=== PATIENT | male | born 1980 | race African-American/Black ===

== ENCOUNTER 2017-01-12 05:53 | Emergency (ER) | payer OTHER ==
[~2017-01-12] VITALS: Ht 177.8 cm; Wt 68.0 kg
[2017-01-12 06:34] VITALS: BP 120/86
== END 2017-01-12 07:31 | disposition home or self-care (01) ==
LOC: ER 06:02
DX: S46.911A Strain of unspecified muscle, fascia and tendon at shoulder and upper arm level, right arm, initial encounter (principal); X50.0XXA Overexertion from strenuous movement or load, initial encounter; X50.9XXA Other and unspecified overexertion or strenuous movements or postures, initial encounter; Y93.89 Activity, other specified; Y99.8 Other external cause status; Y92.89 Other specified places as the place of occurrence of the external cause

== ENCOUNTER 2021-02-02 12:21 | Emergency (ER) | payer OTHER ==
[~2021-02-02] VITALS: Ht 175.3 cm; Wt 70.3 kg
[2021-02-02] MEDS ORDERED: LORazepam 2MG/ML-1ML VIAL IV ONE (12:45)
[2021-02-02] MEDS ORDERED: SODIUM CHLORIDE 0.9% 1,000 ML IV ONE ×2 (12:45)
[2021-02-02 13:45] LABS: Basophils # (auto) 0 10 ^3/uL (0-0.2); Basophils % (auto) 0.4 % (0.0-2.0); Calcium 9.6 mg/dL (8.5-10.1); Eosinophils # (auto) 0.1 10 ^3/uL (0-0.8); Eosinophils % (auto) 0.9 % (0.0-7.0); Hematocrit 46.2 % (41.0-53.0); Hemoglobin 15.9 g/dL (13.5-17.5); Lymphocytes # (auto) 1.1 10 ^3/uL (0.4-5.4); Lymphocytes % (auto) 10.2 % (10.0-50.0); Mean Corpuscular Hemoglobin 31.5 pg (28.0-32.0); Mean Corpuscular Hgb Conc. 34.4 g/dL (32.0-36.0); Mean Corpuscular Volume 91.5 fL (80.0-100.0); Monocytes # (auto) 0.6 10 ^3/uL (0-1.3); Monocytes % (auto) 5.5 % (0.0-12.0); Neutrophils # (auto) 8.8 10 ^3/uL (1.6-8.6); Nucleated Red Blood Cells % 0.1 %; Platelet Count (auto) 361 10^3/uL (140-450); Red Blood Cells 5.05 10^6/uL (4.5-5.90); Red Cell Distribution Width 12.3 % (11.8-14.3); White Blood Cell 10.6 10^3/uL (4.4-10.8)
[2021-02-02 13:46] LABS: Alcohol, Urine < 3.0 mg/dL (0-10); Amphetamine Screen, Urine POSITIVE (NEGATIVE); Barbiturate Scree,Urine NEGATIVE (NEGATIVE); Benzodiazephine Screen, Urine NEGATIVE (NEGATIVE); Cannabinoid Screen, Urine NEGATIVE (NEGATIVE); Cocaine Screen, Urine POSITIVE (NEGATIVE); Opiate Scree,Urine NEGATIVE (NEGATIVE); Phencyclidine Screen, Urine NEGATIVE (NEGATIVE)
[2021-02-02 13:51] LABS: Albumin 4.6 g/dL (3.4-5.0); BUN/Creatinine Ratio 6.9; Bilirubin, Total 0.7 mg/dL (0.2-1.0); Total Protein 8.8 g/dL (6.4-8.2)
[2021-02-02 14:05] LABS: Urine Bacteria NONE SEEN /hpf (None Seen); Urine Blood Negative /uL (Negative); Urine Mucus FEW (None Seen); Urine Specific Gravity 1.028 (1.001-1.035); Urine WBC 1 /hpf (0 - 3)
[2021-02-02 15:45] VITALS: BP 144/79
== END 2021-02-02 16:18 | disposition home or self-care (01) ==
LOC: ER 12:21
DX: F41.9 Anxiety disorder, unspecified (principal); F12.10 Cannabis abuse, uncomplicated; F15.10 Other stimulant abuse, uncomplicated
CPT/HCPCS: 36415; 80053; 80307; 81001; 85025; 96361; 96374; 99285; J2060; J7030

== ENCOUNTER 2021-07-21 17:30 | Emergency (ER) | payer SELFPAY ==
[~2021-07-21] VITALS: Ht 177.8 cm; Wt 72.6 kg
[2021-07-21] MEDS ORDERED: SODIUM CHLORIDE 0.9% 1,000 ML IVB ONE (17:45)
[2021-07-21 18:33] LABS: Basophils # (auto) 0 10 ^3/uL (0-0.2); Basophils % (auto) 0.4 % (0.0-2.0); Eosinophils # (auto) 0.3 10 ^3/uL (0-0.8); Eosinophils % (auto) 2.4 % (0.0-7.0); Hematocrit 38.4 % (41.0-53.0); Hemoglobin 12.7 g/dL (13.5-17.5); Lymphocytes # (auto) 1.7 10 ^3/uL (0.4-5.4); Lymphocytes % (auto) 15.8 % (10.0-50.0); Mean Corpuscular Hemoglobin 29.9 pg (28.0-32.0); Mean Corpuscular Volume 90.6 fL (80.0-100.0); Monocytes # (auto) 0.6 10 ^3/uL (0-1.3); Monocytes % (auto) 5.4 % (0.0-12.0); Nucleated Red Blood Cells % 0.1 %; Red Blood Cells 4.24 10^6/uL (4.5-5.90); Red Cell Distribution Width 13.3 % (11.8-14.3); White Blood Cell 10.5 10^3/uL (4.4-10.8)
[2021-07-21 19:01] LABS: Albumin 3.8 g/dL (3.4-5.0); BUN/Creatinine Ratio 10.4; Calcium 8.8 mg/dL (8.5-10.1); Potassium 3.8 mmol/L (3.5-5.1)
[2021-07-21 19:04] LABS: Bilirubin, Total 0.2 mg/dL (0.2-1.0); Total Protein 7.3 g/dL (6.4-8.2)
[2021-07-21] MEDS ORDERED: ONDANSETRON HCL 4 MG/2 ML VIAL IV ONE (19:15)
[2021-07-21 19:20] VITALS: BP 115/74
== END 2021-07-21 19:32 | disposition home or self-care (01) ==
LOC: ER 17:30 → EDBD 17:30 → ER 19:32
DX: T50.901A Poisoning by unspecified drugs, medicaments and biological substances, accidental (unintentional), initial encounter (principal); F15.10 Other stimulant abuse, uncomplicated; F17.210 Nicotine dependence, cigarettes, uncomplicated; J45.909 Unspecified asthma, uncomplicated; Y92.89 Other specified places as the place of occurrence of the external cause
CPT/HCPCS: 36415; 80053; 80320; 85025; 96361; 96374; 99284; J2405; J7030; 93005

== ENCOUNTER 2023-06-21 19:33 | Emergency (ER) | payer OTHER ==
[~2023-06-21] VITALS: Ht 177.8 cm; Wt 155.0 kg
[2023-06-21] MEDS ORDERED: PSEU120T2 PO (22:30)
[2023-06-21] MEDS ORDERED: PRED20TA2 PO (22:30)
[2023-06-21] MEDS ORDERED: CLIN300C70 PO (22:30)
[2023-06-22 02:00] VITALS: BP 129/67; PULSE 76; RESP 18; TEMP 98; O2SAT 96
[2023-06-22] MEDS ORDERED: DexAMETHasone SOD PHOS 10MG/1ML VIAL INJ IM ONE (02:00)
== END 2023-06-22 02:00 | disposition home or self-care (01) ==
LOC: ER 19:34
DX: J01.90 Acute sinusitis, unspecified (principal); F17.210 Nicotine dependence, cigarettes, uncomplicated; J45.909 Unspecified asthma, uncomplicated
CPT/HCPCS: 96372; 99283; J1100

== ENCOUNTER 2023-08-25 07:39 | Emergency (ER) | payer MEDICAID, OTHER ==
[~2023-08-25] VITALS: Ht 177.8 cm; Wt 64.8 kg
[~2023-08-25 07:39] MED LIST: CLIN300C70 PO; PRED20TA2 PO; PSEU120T2 PO
[2023-08-25] MEDS ORDERED: LORazepam 2MG/ML-1ML VIAL IM ONE ×2 (08:30→10:00)
[2023-08-25 09:43] LABS: Amphetamine Screen, Urine Neg (NEGATIVE); Barbiturate Scree,Urine Neg (NEGATIVE); Benzodiazephine Screen, Urine Neg (NEGATIVE); Cannabinoid Screen, Urine Neg (NEGATIVE); Cocaine Screen, Urine Neg (NEGATIVE); Opiate Scree,Urine Neg (NEGATIVE); Phencyclidine Screen, Urine Neg (NEGATIVE)
[2023-08-25 09:45] LABS: Basophils # (auto) 0 10 ^3/uL (0-0.2); Basophils % (auto) 0.2 % (0.0-2.0); Eosinophils # (auto) 0 10 ^3/uL (0-0.8); Eosinophils % (auto) 0.2 % (0.0-7.0); Hemoglobin 14.5 g/dL (13.5-17.5); Lymphocytes # (auto) 1.2 10 ^3/uL (0.4-5.4); Mean Corpuscular Hgb Conc. 32.9 g/dL (32.0-36.0); Mean Corpuscular Volume 88.3 fL (80.0-100.0); Monocytes # (auto) 0.7 10 ^3/uL (0-1.3); Monocytes % (auto) 4.6 % (0.0-12.0); Neutrophils # (auto) 12.5 10 ^3/uL (1.6-8.6); Red Blood Cells 4.99 10^6/uL (4.5-5.90); Red Cell Distribution Width 14.2 % (11.8-14.3); White Blood Cell 14.4 10^3/uL (4.4-10.8)
[2023-08-25 09:47] LABS: Urine Bacteria NONE SEEN /hpf (None Seen); Urine Blood Negative /uL (Negative); Urine Clarity HAZY (Clear); Urine Color Yellow (Yellow); Urine Hyaline Cast FEW /lpf (0 - 2); Urine Mucus FEW (None Seen); Urine Protein, UAD 1+ (Negative); Urine Specific Gravity 1.033 (1.001-1.035); Urine Urobilinogen Normal (Negative); Urine WBC 3 /hpf (0 - 3); Urine pH 5.5 (5.0-8.0)
[2023-08-25 09:52] LABS: Alanine Aminotransferase 32 U/L (7-40); Alkaline Phosphatase 99 U/L (46-116); Anion Gap 17 (5-15); Calcium 10.1 mg/dL (8.5-10.1); Carbon Dioxide 15 mmol/L (20-30); Chloride 110 mmol/L (98-107); Potassium 4.1 mmol/L (3.5-5.1); Sodium 142 mmol/L (136-145)
[2023-08-25 09:53] LABS: Aspartate Aminotransferase 22 U/L (13-40); BUN/Creatinine Ratio 16.7 (10.0-20.0); Bilirubin, Total 0.8 mg/dL (0.2-1.0); Blood Urea Nitrogen 22 mg/dL (9-23); Total Protein 7.9 g/dL (5.7-8.2)
[2023-08-25] MEDS ORDERED: HALOPERIDOL LACTATE 5 MG/ML INJ VIAL IM ONE (10:00)
[2023-08-25 10:06] LABS: Glucose 164 mg/dL (74-106)
[2023-08-26 14:00] VITALS: BP 121/91; PULSE 121; RESP 18; TEMP 97.6; O2SAT 96
== END 2023-08-26 15:45 | disposition home or self-care (01) ==
LOC: ER 07:39
DX: F25.9 Schizoaffective disorder, unspecified (principal); J45.909 Unspecified asthma, uncomplicated; F17.210 Nicotine dependence, cigarettes, uncomplicated
CPT/HCPCS: 36415; 80053; 80307; 80320; 81001; 85025; 96372; 99285; J1630; J2060

== ENCOUNTER 2023-09-08 17:40 | Inpatient (IN) | payer MEDICAID ==
[~2023-09-08] VITALS: Ht 180.3 cm; Wt 68.9 kg
[2023-09-08] VITALS (8 sets, daily range): BP systolic 105–177; BP diastolic 74–97; PULSE 115–130; RESP 27–45; TEMP 99.5–99.9; O2SAT 82–95
[2023-09-08] MEDS ORDERED: SUCCINYLCHOLINE CHLORIDE 20 MG/ML 10ML VIAL IV ONE (17:44)
[2023-09-08] MEDS ORDERED: SODIUM CHLORIDE 0.9% 1,000 ML IV ONE (18:15)
[2023-09-08] MEDS ORDERED: SODIUM CHLORIDE 0.9% 500 ML IVB ONE (18:15)
[2023-09-08] MEDS ORDERED: MIDAZOLAM DRIP 50 mg/50mL 50 ML IV ONE (18:25)
[2023-09-08] MEDS: MIDAZOLAM DRIP 50 mg/50mL 50 ML IV SCH ×2 (18:28→20:57)
[2023-09-08 18:53] LABS: Basophils # (auto) 0.1 10 ^3/uL (0-0.2); Nucleated Red Blood Cells % 0.3 %
[2023-09-08 18:54] LABS: Basophils % (auto) 0.4 % (0.0-2.0); Eosinophils # (auto) 0.3 10 ^3/uL (0-0.8); Lymphocytes # (auto) 5.6 10 ^3/uL (0.4-5.4); Monocytes # (auto) 0.8 10 ^3/uL (0-1.3); Neutrophils # (auto) 8.8 10 ^3/uL (1.6-8.6)
[2023-09-08 19:00] LABS: Amphetamine Screen, Urine Neg (NEGATIVE); Barbiturate Scree,Urine Neg (NEGATIVE); Benzodiazephine Screen, Urine Pos (NEGATIVE); Cannabinoid Screen, Urine Neg (NEGATIVE); Cocaine Screen, Urine Neg (NEGATIVE); Opiate Scree,Urine Neg (NEGATIVE); Phencyclidine Screen, Urine Neg (NEGATIVE)
[2023-09-08 19:01] LABS: Hematocrit 32.9 % (41.0-53.0); Hemoglobin 10.7 g/dL (13.5-17.5); Lymphocytes % (auto) 36.2 % (10.0-50.0); Mean Corpuscular Hemoglobin 30.1 pg (28.0-32.0); Mean Corpuscular Hgb Conc. 32.7 g/dL (32.0-36.0); Mean Corpuscular Volume 92.2 fL (80.0-100.0); Neutrophils % (auto) 56.4 % (37.0-80.0); Red Blood Cells 3.56 10^6/uL (4.5-5.90); Red Cell Distribution Width 14.7 % (11.8-14.3); White Blood Cell 15.5 10^3/uL (4.4-10.8)
[2023-09-08 19:04] LABS: Urine Bacteria FEW /hpf (None Seen); Urine Blood Negative /uL (Negative); Urine Clarity HAZY (Clear); Urine Color Yellow (Yellow); Urine Protein, UAD TRACE (Negative); Urine Specific Gravity 1.019 (1.001-1.035); Urine Sperm PRESENT /hpf (None Seen); Urine Urobilinogen Normal (Negative); Urine WBC 25 /hpf (0 - 3); Urine pH 5.5 (5.0-8.0)
[2023-09-08 19:10] LABS: Lactic Acid w/Reflex 5.1 mmol/L (0.4-2.0)
[2023-09-08 19:11] LABS: Alanine Aminotransferase 195 U/L (7-40); Alkaline Phosphatase 143 U/L (46-116); Anion Gap 10 (5-15); Aspartate Aminotransferase 115 U/L (13-40); BUN/Creatinine Ratio 7.2 (10.0-20.0); Bilirubin, Total < 0.2 mg/dL (0.2-1.0); Blood Urea Nitrogen 8 mg/dL (9-23); Carbon Dioxide 23 mmol/L (20-30); Chloride 110 mmol/L (98-107); Glucose 310 mg/dL (74-106); Magnesium 1.6 mg/dL (1.6-2.6); Potassium 3.7 mmol/L (3.5-5.1); Sodium 143 mmol/L (136-145); Total Protein 4.8 g/dL (5.7-8.2)
[2023-09-08] MEDS ORDERED: LORazepam 2MG/ML-1ML VIAL ONE (19:55)
[2023-09-08 19:59] LABS: Base Excess -6.1 mmol/L (-2.0-2.0)
[2023-09-08] MEDS: PROPOFOL 100 ML IV SCH ×2 (20:00→22:52)
[2023-09-08] MEDS ORDERED: LORazepam 2MG/ML-1ML VIAL IV ONE (20:00)
[2023-09-08] MEDS ORDERED: PROPOFOL 100 ML IV ONE (20:00)
[2023-09-08] MEDS ORDERED: NITROGLYCERIN 0.4 MG SL TAB SL PRN (21:45)
[2023-09-08] MEDS ORDERED: ALBUTEROL SULF 2.5 MG/0.5ML(0.5%) NEB SOLN NEB PRN (21:45)
[2023-09-08] MEDS ORDERED: cefTRIAXone 1GM/50ML D5W 50 ML IV ONE (21:45)
[2023-09-08] MEDS ORDERED: MORPHINE SULFATE INJ 2 MG/ml SYRG IV PRN (21:45)
[2023-09-08] MEDS ORDERED: ONDANSETRON HCL 4 MG/2 ML VIAL IV PRN (21:45)
[2023-09-08] MEDS: SODIUM CHLORIDE 0.9% 1,000 ML IV SCH (22:21)
[2023-09-08 22:31] LABS: Base Excess -3.9 mmol/L (-2.0-2.0)
[2023-09-08] MEDS: fentaNYL Drip 2500mCg/250mlNS 250 ML IV SCH (23:00)
[2023-09-09] VITALS (102 sets, daily range): BP systolic 76–132; BP diastolic 36–75; PULSE 87–117; RESP 7–32; TEMP 98.2–99.9; O2SAT 90–100
[2023-09-09] MEDS ORDERED: BUPR8MIS BC (01:23)
[2023-09-09] MEDS ORDERED: NALO4SPR2 (01:25)
[2023-09-09] MEDS ORDERED: DOCU-94 PO (01:25)
[2023-09-09] MEDS: CLINDAMYCIN 600MG IV 50 ML IV SCH ×2 (01:32→06:44)
[2023-09-09] MEDS: PROPOFOL 100 ML IV SCH ×6 (02:01→21:52)
[2023-09-09 03:47] LABS: Base Excess -4.1 mmol/L (-2.0-2.0)
[2023-09-09] MEDS: MIDAZOLAM DRIP 50 mg/50mL 50 ML IV SCH ×6 (03:56→18:05)
[2023-09-09 05:35] LABS: Basophils # (auto) 0 10 ^3/uL (0-0.2); Basophils % (auto) 0.3 % (0.0-2.0); Eosinophils # (auto) 0 10 ^3/uL (0-0.8); Eosinophils % (auto) 0.3 % (0.0-7.0); Hematocrit 41.9 % (41.0-53.0); Hemoglobin 13.5 g/dL (13.5-17.5); Lymphocytes # (auto) 1.3 10 ^3/uL (0.4-5.4); Lymphocytes % (auto) 8.8 % (10.0-50.0); Mean Corpuscular Hemoglobin 29.1 pg (28.0-32.0); Mean Corpuscular Hgb Conc. 32.3 g/dL (32.0-36.0); Monocytes # (auto) 1.1 10 ^3/uL (0-1.3); Monocytes % (auto) 7.5 % (0.0-12.0); Neutrophils # (auto) 12.1 10 ^3/uL (1.6-8.6); Neutrophils % (auto) 83.1 % (37.0-80.0); Nucleated Red Blood Cells % 0.3 %; Red Blood Cells 4.65 10^6/uL (4.5-5.90); Red Cell Distribution Width 14.6 % (11.8-14.3); White Blood Cell 14.6 10^3/uL (4.4-10.8)
[2023-09-09] MEDS: SODIUM CHLORIDE 0.9% 1,000 ML IV SCH (06:42)
[2023-09-09 06:55] LABS: Large Platelets FEW; Platelet Estimate Adequate
[2023-09-09] MEDS: PHENYLEPHRINE IV 250 ML IV SCH ×3 (07:25→13:29)
[2023-09-09] MEDS ORDERED: cefTRIAXone 1GM/50ML D5W 50 ML IV SCH (09:00)
[2023-09-09] MEDS ORDERED: NOREPINEPHRINE BITARTRATE 16 MG in SODIUM CHL 0.9% 234 ML IV SCH (11:00)
[2023-09-09] MEDS ORDERED: VANCOMYCIN PER PHARMACY 0 MG IV SCH (11:45)
[2023-09-09] MEDS ORDERED: PANTOPRAZOLE 40 MG/10 ML VIAL INJ IV ONE (11:45)
[2023-09-09] MEDS ORDERED: CEFEPIME 2GM/50ML NS 50 ML IV ONE (11:45)
[2023-09-09] MEDS ORDERED: VANCOMYCIN 1GM/250ML 250 ML IV ONE (13:00)
[2023-09-09] MEDS: fentaNYL Drip 2500mCg/250mlNS 250 ML IV SCH ×2 (13:02→19:55)
[2023-09-09] MEDS ORDERED: MAGNESIUM SULFATE 1GM/100ML 100 ML IV ONE (14:00)
[2023-09-09] MEDS: VASOPRESSIN 20 UNITS in SODIUM CHL 0.9% 99 ML IV SCH (14:00)
[2023-09-09] MEDS: PHENYLEPHRINE INJ 80 MG in SODIUM CHL 0.9% 242 ML IV SCH (14:00)
[2023-09-09] MEDS: NOREPINEPHRINE BITARTRATE 32 MG in SODIUM CHL 0.9% 218 ML IV SCH (14:00)
[2023-09-09 14:23] LABS: INR 1.13 (0.9-1.15); Partial Thromboplastin Time 29.8 SEC (24.5-34.5); Prothrombin Time 11.8 sec (9.3-11.8)
[2023-09-09 14:53] LABS: Alanine Aminotransferase 184 U/L (7-40); Albumin 3.1 g/dL (3.2-4.8); Alkaline Phosphatase 110 U/L (46-116); Anion Gap 3 (5-15); Aspartate Aminotransferase 83 U/L (13-40); BUN/Creatinine Ratio 10.5 (10.0-20.0); Bilirubin, Total 0.3 mg/dL (0.2-1.0); Blood Urea Nitrogen 11 mg/dL (9-23); Calcium 7.7 mg/dL (8.5-10.1); Carbon Dioxide 28 mmol/L (20-30); Chloride 106 mmol/L (98-107); Sodium 137 mmol/L (136-145); Total Protein 5.2 g/dL (5.7-8.2)
[2023-09-09 15:08] LABS: Glucose 143 mg/dL (74-106)
[2023-09-09 15:12] LABS: Potassium 5.8 mmol/L (3.5-5.1)
[2023-09-09] MEDS ORDERED: EPINEPHrine HCL 1 MG/10 ML SYRG IV ONE (15:16)
[2023-09-09] MEDS ORDERED: SODIUM BICARBONATE 8.4% INJ 50ML SYRINGE IV ONE (15:16)
[2023-09-09] MEDS ORDERED: InsuLIN REG 1unit/0.01ml Soln (100units/ml) IV ONE (15:30)
[2023-09-09] MEDS ORDERED: DEXTROSE (50%) 50ML SYRG IV ONE (15:30)
[2023-09-09] MEDS: SODIUM ZIRCONIUM CYCL 10 GM PAK GT SCH ×2 (16:35→21:53)
[2023-09-09] MEDS: VANCOMYCIN 1GM/250ML 250 ML IV SCH (20:59)
[2023-09-09] MEDS: CEFEPIME 2GM/50ML NS 50 ML IV SCH (21:53)
[2023-09-10] VITALS (108 sets, daily range): BP systolic 86–128; BP diastolic 40–73; PULSE 81–94; RESP 23–24; TEMP 67.5–99.7; O2SAT 96–100
[2023-09-10] MEDS: MIDAZOLAM DRIP 50 mg/50mL 50 ML IV SCH ×6 (00:09→21:26)
[2023-09-10] MEDS: NOREPINEPHRINE BITARTRATE 32 MG in SODIUM CHL 0.9% 218 ML IV SCH (00:48)
[2023-09-10] MEDS: VASOPRESSIN 20 UNITS in SODIUM CHL 0.9% 99 ML IV SCH ×3 (01:07→23:21)
[2023-09-10] MEDS: fentaNYL Drip 2500mCg/250mlNS 250 ML IV SCH ×4 (02:31→22:20)
[2023-09-10] MEDS: PROPOFOL 100 ML IV SCH ×6 (03:31→22:17)
[2023-09-10 04:07] LABS: Basophils # (auto) 0 10 ^3/uL (0-0.2); Basophils % (auto) 0.4 % (0.0-2.0); Eosinophils # (auto) 0.3 10 ^3/uL (0-0.8); Eosinophils % (auto) 3.1 % (0.0-7.0); Hematocrit 34.6 % (41.0-53.0); Hemoglobin 11.4 g/dL (13.5-17.5); Lymphocytes # (auto) 0.7 10 ^3/uL (0.4-5.4); Mean Corpuscular Hemoglobin 29.8 pg (28.0-32.0); Mean Corpuscular Volume 90.3 fL (80.0-100.0); Monocytes # (auto) 0.4 10 ^3/uL (0-1.3); Monocytes % (auto) 3.8 % (0.0-12.0); Neutrophils # (auto) 7.7 10 ^3/uL (1.6-8.6); Neutrophils % (auto) 84.7 % (37.0-80.0); Red Blood Cells 3.83 10^6/uL (4.5-5.90); Red Cell Distribution Width 14.7 % (11.8-14.3); White Blood Cell 9.1 10^3/uL (4.4-10.8)
[2023-09-10 04:26] LABS: Alanine Aminotransferase 142 U/L (7-40); Albumin 2.9 g/dL (3.2-4.8); Alkaline Phosphatase 111 U/L (46-116); Anion Gap 8 (5-15); Aspartate Aminotransferase 62 U/L (13-40); BUN/Creatinine Ratio 8.7 (10.0-20.0); Bilirubin, Total 0.5 mg/dL (0.2-1.0); Blood Urea Nitrogen 10 mg/dL (9-23); Calcium 8.2 mg/dL (8.7-10.4); Carbon Dioxide 25 mmol/L (20-30); Chloride 110 mmol/L (98-107); Glucose 119 mg/dL (74-106); Potassium 4.6 mmol/L (3.5-5.1); Sodium 143 mmol/L (136-145); Total Protein 4.9 g/dL (5.7-8.2)
[2023-09-10] MEDS: VANCOMYCIN 1GM/250ML 250 ML IV SCH ×3 (04:40→21:29)
[2023-09-10] MEDS: SODIUM ZIRCONIUM CYCL 10 GM PAK GT SCH (05:31)
[2023-09-10] MEDS: CEFEPIME 2GM/50ML NS 50 ML IV SCH ×3 (05:31→22:17)
[2023-09-10] MEDS: PHENYLEPHRINE INJ 80 MG in SODIUM CHL 0.9% 242 ML IV SCH (07:29)
[2023-09-10 08:28] LABS: Base Excess -1.5 mmol/L (-2.0-2.0)
[2023-09-10] MEDS: ENOXAPARIN SOD 40 MG/0.4 ML SYRINGE SC SCH (08:41)
[2023-09-10] MEDS: PANTOPRAZOLE 40 MG/10 ML VIAL INJ IV SCH (08:41)
[2023-09-10] MEDS ORDERED: FUROSEMIDE 20 MG/2 ML VIAL IV ONE ×2 (12:30→15:15)
[2023-09-10] MEDS ORDERED: Jevity 1.2 Cal/Fiber 1 Liter GT SCH (15:15)
[2023-09-11] VITALS (107 sets, daily range): BP systolic 87–135; BP diastolic 47–76; PULSE 68–81; RESP 14–24; TEMP 96.4–99.3; O2SAT 89–100
[2023-09-11] MEDS: PROPOFOL 100 ML IV SCH ×7 (02:23→23:43)
[2023-09-11 04:01] LABS: Basophils # (auto) 0 10 ^3/uL (0-0.2); Basophils % (auto) 0.6 % (0.0-2.0); Eosinophils # (auto) 0.4 10 ^3/uL (0-0.8); Eosinophils % (auto) 5.3 % (0.0-7.0); Hematocrit 28.2 % (41.0-53.0); Hemoglobin 10.2 g/dL (13.5-17.5); Lymphocytes # (auto) 0.8 10 ^3/uL (0.4-5.4); Lymphocytes % (auto) 9.9 % (10.0-50.0); Mean Corpuscular Hemoglobin 31.6 pg (28.0-32.0); Mean Corpuscular Hgb Conc. 36.1 g/dL (32.0-36.0); Mean Corpuscular Volume 87.7 fL (80.0-100.0); Monocytes # (auto) 0.3 10 ^3/uL (0-1.3); Monocytes % (auto) 3.4 % (0.0-12.0); Neutrophils # (auto) 6.7 10 ^3/uL (1.6-8.6); Neutrophils % (auto) 80.8 % (37.0-80.0); Red Blood Cells 3.21 10^6/uL (4.5-5.90); Red Cell Distribution Width 14.6 % (11.8-14.3); White Blood Cell 8.2 10^3/uL (4.4-10.8)
[2023-09-11 04:29] LABS: Bilirubin, Total 0.6 mg/dL (0.2-1.0); Total Protein 4.7 g/dL (5.7-8.2)
[2023-09-11 04:30] LABS: Carbon Dioxide 26 mmol/L (20-30)
[2023-09-11 04:32] LABS: Albumin 2.9 g/dL (3.2-4.8); Alkaline Phosphatase 105 U/L (46-116); Anion Gap 7 (5-15); Aspartate Aminotransferase 95 U/L (13-40); BUN/Creatinine Ratio 11.8 (10.0-20.0); Blood Urea Nitrogen 14 mg/dL (9-23); Chloride 107 mmol/L (98-107); Glucose 101 mg/dL (74-106); Potassium 3.5 mmol/L (3.5-5.1); Sodium 140 mmol/L (136-145)
[2023-09-11] MEDS: VANCOMYCIN 1GM/250ML 250 ML IV SCH (05:10)
[2023-09-11 05:13] LABS: Magnesium 1.7 mg/dL (1.6-2.6)
[2023-09-11 05:18] LABS: Alanine Aminotransferase 94 U/L (7-40)
[2023-09-11] MEDS: NOREPINEPHRINE BITARTRATE 32 MG in SODIUM CHL 0.9% 218 ML IV SCH (05:44)
[2023-09-11] MEDS: MIDAZOLAM DRIP 50 mg/50mL 50 ML IV SCH ×3 (05:45→11:59)
[2023-09-11] MEDS: fentaNYL Drip 2500mCg/250mlNS 250 ML IV SCH ×3 (05:51→21:50)
[2023-09-11] MEDS: CEFEPIME 2GM/50ML NS 50 ML IV SCH (06:02)
[2023-09-11] MEDS: VASOPRESSIN 20 UNITS in SODIUM CHL 0.9% 99 ML IV SCH ×2 (06:59→09:46)
[2023-09-11] MEDS: PHENYLEPHRINE INJ 80 MG in SODIUM CHL 0.9% 242 ML IV SCH (06:59)
[2023-09-11 07:49] LABS: Base Excess 1.4 mmol/L (-2.0-2.0)
[2023-09-11] MEDS: PANTOPRAZOLE 40 MG/10 ML VIAL INJ IV SCH (07:55)
[2023-09-11] MEDS: ENOXAPARIN SOD 40 MG/0.4 ML SYRINGE SC SCH (07:55)
[2023-09-11] MEDS ORDERED: SODIUM CHLORIDE 0.9% 2,550 ML IV ONE (08:45)
[2023-09-11] MEDS: SODIUM CHLORIDE 0.9% 1,000 ML IV SCH ×2 (08:45→20:00)
[2023-09-11] MEDS: AMPICILLIN & SULBACTAM SODIUM 3 GM in SODIUM CHL 0.9% 100 ML IV SCH ×3 (10:43→21:24)
[2023-09-11] MEDS ORDERED: ALBUTEROL MEDNEB 2.5 mg/3ml NEB NEB PRN (18:00)
[2023-09-12] VITALS (105 sets, daily range): BP systolic 94–153; BP diastolic 46–88; PULSE 62–90; RESP 21–26; TEMP 96.6–99.7; O2SAT 90–100
[2023-09-12] MEDS: AMPICILLIN & SULBACTAM SODIUM 3 GM in SODIUM CHL 0.9% 100 ML IV SCH ×4 (03:46→21:14)
[2023-09-12 04:14] LABS: Basophils # (auto) 0 10 ^3/uL (0-0.2); Basophils % (auto) 0.5 % (0.0-2.0); Eosinophils # (auto) 0.3 10 ^3/uL (0-0.8); Eosinophils % (auto) 4.6 % (0.0-7.0); Hematocrit 27.9 % (41.0-53.0); Hemoglobin 10.2 g/dL (13.5-17.5); Lymphocytes # (auto) 0.6 10 ^3/uL (0.4-5.4); Lymphocytes % (auto) 7.9 % (10.0-50.0); Mean Corpuscular Hemoglobin 31.7 pg (28.0-32.0); Mean Corpuscular Volume 86.9 fL (80.0-100.0); Monocytes # (auto) 0.4 10 ^3/uL (0-1.3); Monocytes % (auto) 5.4 % (0.0-12.0); Neutrophils # (auto) 6.1 10 ^3/uL (1.6-8.6); Neutrophils % (auto) 81.6 % (37.0-80.0); Red Blood Cells 3.21 10^6/uL (4.5-5.90); Red Cell Distribution Width 14.9 % (11.8-14.3); White Blood Cell 7.5 10^3/uL (4.4-10.8)
[2023-09-12 04:20] LABS: Mean Corpuscular Hgb Conc. 36.5 g/dL (32.0-36.0)
[2023-09-12 04:32] LABS: Albumin 2.9 g/dL (3.2-4.8); Alkaline Phosphatase 135 U/L (46-116); Anion Gap 7 (5-15); Bilirubin, Total 0.4 mg/dL (0.2-1.0); Blood Urea Nitrogen 13 mg/dL (9-23); Carbon Dioxide 23 mmol/L (20-30); Chloride 108 mmol/L (98-107); Glucose 88 mg/dL (74-106); Potassium 3.8 mmol/L (3.5-5.1); Sodium 138 mmol/L (136-145); Total Protein 4.9 g/dL (5.7-8.2)
[2023-09-12] MEDS: SODIUM CHLORIDE 0.9% 1,000 ML IV SCH ×3 (04:45→23:24)
[2023-09-12 04:51] LABS: BUN/Creatinine Ratio 13.4 (10.0-20.0)
[2023-09-12] MEDS: MIDAZOLAM DRIP 50 mg/50mL 50 ML IV SCH ×4 (05:06→22:30)
[2023-09-12 05:22] LABS: Alanine Aminotransferase 69 U/L (7-40); Aspartate Aminotransferase 77 U/L (13-40)
[2023-09-12] MEDS: fentaNYL Drip 2500mCg/250mlNS 250 ML IV SCH ×2 (06:07→15:02)
[2023-09-12] MEDS: PHENYLEPHRINE INJ 80 MG in SODIUM CHL 0.9% 242 ML IV SCH (06:55)
[2023-09-12] MEDS: VASOPRESSIN 20 UNITS in SODIUM CHL 0.9% 99 ML IV SCH ×2 (06:55→11:18)
[2023-09-12] MEDS: NOREPINEPHRINE BITARTRATE 32 MG in SODIUM CHL 0.9% 218 ML IV SCH (06:56)
[2023-09-12] MEDS: PROPOFOL 100 ML IV SCH ×3 (06:58→12:38)
[2023-09-12] MEDS: PANTOPRAZOLE 40 MG/10 ML VIAL INJ IV SCH (07:42)
[2023-09-12] MEDS: ENOXAPARIN SOD 40 MG/0.4 ML SYRINGE SC SCH (07:42)
[2023-09-12 08:29] LABS: Base Excess -1.6 mmol/L (-2.0-2.0)
[2023-09-12] MEDS ORDERED: ALBUTEROL SULF 2.5 MG/0.5ML(0.5%) NEB SOLN NEB SCH (10:00)
[2023-09-12 11:30] LABS: Urine Bacteria NONE SEEN /hpf (None Seen); Urine Blood Negative /uL (Negative); Urine Clarity Clear (Clear); Urine Color Yellow (Yellow); Urine Protein, UAD 1+ (Negative); Urine Specific Gravity 1.023 (1.001-1.035); Urine Urobilinogen Normal (Negative); Urine WBC 1 /hpf (0 - 3); Urine pH 6.5 (5.0-8.0)
[2023-09-12] MEDS: IPRATROPIUM BROM 0.5 MG/2.5ML INH SOL NEB SCH ×2 (12:00→18:39)
[2023-09-12] MEDS: ALBUTEROL MEDNEB 2.5 mg/3ml NEB NEB SCH (18:39)
[2023-09-13] VITALS (109 sets, daily range): BP systolic 105–189; BP diastolic 53–110; PULSE 67–120; RESP 20–38; TEMP 98.6–102; O2SAT 94–100
[2023-09-13] MEDS: ALBUTEROL MEDNEB 2.5 mg/3ml NEB NEB SCH ×5 (00:26→23:56)
[2023-09-13] MEDS: IPRATROPIUM BROM 0.5 MG/2.5ML INH SOL NEB SCH ×5 (00:27→23:56)
[2023-09-13] MEDS: PROPOFOL 100 ML IV SCH ×2 (01:49→22:31)
[2023-09-13] MEDS: AMPICILLIN & SULBACTAM SODIUM 3 GM in SODIUM CHL 0.9% 100 ML IV SCH ×4 (03:19→21:25)
[2023-09-13] MEDS: MIDAZOLAM DRIP 50 mg/50mL 50 ML IV SCH ×5 (03:30→23:30)
[2023-09-13 03:58] LABS: Basophils # (auto) 0 10 ^3/uL (0-0.2); Basophils % (auto) 0.4 % (0.0-2.0); Eosinophils # (auto) 0 10 ^3/uL (0-0.8); Eosinophils % (auto) 0.6 % (0.0-7.0); Hematocrit 27.7 % (41.0-53.0); Hemoglobin 9.5 g/dL (13.5-17.5); Lymphocytes # (auto) 0.6 10 ^3/uL (0.4-5.4); Lymphocytes % (auto) 8.3 % (10.0-50.0); Mean Corpuscular Hemoglobin 29.6 pg (28.0-32.0); Mean Corpuscular Hgb Conc. 34.3 g/dL (32.0-36.0); Mean Corpuscular Volume 86.2 fL (80.0-100.0); Monocytes # (auto) 0.4 10 ^3/uL (0-1.3); Monocytes % (auto) 5.9 % (0.0-12.0); Neutrophils # (auto) 5.7 10 ^3/uL (1.6-8.6); Neutrophils % (auto) 84.8 % (37.0-80.0); Nucleated Red Blood Cells % 0.1 %; Red Blood Cells 3.21 10^6/uL (4.5-5.90); Red Cell Distribution Width 14.7 % (11.8-14.3); White Blood Cell 6.7 10^3/uL (4.4-10.8)
[2023-09-13 04:11] LABS: Alanine Aminotransferase 54 U/L (7-40); Alkaline Phosphatase 154 U/L (46-116); Anion Gap 10 (5-15); BUN/Creatinine Ratio 12.9 (10.0-20.0); Bilirubin, Total 0.5 mg/dL (0.2-1.0); Blood Urea Nitrogen 12 mg/dL (9-23); Calcium 8.2 mg/dL (8.7-10.4); Carbon Dioxide 22 mmol/L (20-30); Chloride 108 mmol/L (98-107); Glucose 133 mg/dL (74-106); Potassium 3.8 mmol/L (3.5-5.1); Sodium 140 mmol/L (136-145); Total Protein 5.3 g/dL (5.7-8.2)
[2023-09-13 05:15] LABS: Aspartate Aminotransferase 73 U/L (13-40)
[2023-09-13] MEDS: SODIUM CHLORIDE 0.9% 1,000 ML IV SCH (05:29)
[2023-09-13] MEDS: VASOPRESSIN 20 UNITS in SODIUM CHL 0.9% 99 ML IV SCH (06:56)
[2023-09-13 07:09] LABS: Base Excess 0.9 mmol/L (-2.0-2.0)
[2023-09-13] MEDS ORDERED: LABETALOL HCL 5 MG/ML 4ML SYRINGE IV PRN (09:30)
[2023-09-13] MEDS: PANTOPRAZOLE 40 MG/10 ML VIAL INJ IV SCH (09:43)
[2023-09-13] MEDS: ENOXAPARIN SOD 40 MG/0.4 ML SYRINGE SC SCH (09:44)
[2023-09-13] MEDS: ACETAMINOPHEN 325 MG TAB PO PRN ×2 (09:44→20:23)
[2023-09-13 10:40] LABS: Hepatitis B Surface Antigen Negative (Negative)
[2023-09-13 11:00] LABS: Hepatitis A Ab IgM Negative
[2023-09-13 11:01] LABS: Hepatitis B Core IgM Negative; Hepatitis C Antibody Negative (Negative)
[2023-09-13] MEDS: PHENYLEPHRINE INJ 80 MG in SODIUM CHL 0.9% 242 ML IV SCH (12:33)
[2023-09-13] MEDS: NOREPINEPHRINE BITARTRATE 32 MG in SODIUM CHL 0.9% 218 ML IV SCH (12:33)
[2023-09-13] MEDS: LABETALOL HCL 5 MG/ML 4ML SYRINGE IV PRN ×2 (13:27→20:32)
[2023-09-13] MEDS: fentaNYL Drip 2500mCg/250mlNS 250 ML IV SCH (22:45)
[2023-09-14] VITALS (105 sets, daily range): BP systolic 131–177; BP diastolic 80–106; PULSE 68–93; RESP 16–26; TEMP 96.6–99.3; O2SAT 97–100
[2023-09-14] MEDS: PROPOFOL 100 ML IV SCH ×7 (01:02→22:38)
[2023-09-14] MEDS: fentaNYL Drip 2500mCg/250mlNS 250 ML IV SCH (03:36)
[2023-09-14] MEDS: AMPICILLIN & SULBACTAM SODIUM 3 GM in SODIUM CHL 0.9% 100 ML IV SCH ×4 (03:43→20:52)
[2023-09-14 04:27] LABS: Hemoglobin 9.8 g/dL (13.5-17.5); Mean Corpuscular Hemoglobin 29.1 pg (28.0-32.0); Mean Corpuscular Hgb Conc. 33.8 g/dL (32.0-36.0); Mean Corpuscular Volume 86.1 fL (80.0-100.0); Red Blood Cells 3.37 10^6/uL (4.5-5.90); Red Cell Distribution Width 14.8 % (11.8-14.3); White Blood Cell 6.5 10^3/uL (4.4-10.8)
[2023-09-14] MEDS: MIDAZOLAM DRIP 50 mg/50mL 50 ML IV SCH ×4 (04:30→19:30)
[2023-09-14 04:43] LABS: Alanine Aminotransferase 54 U/L (7-40); Albumin 3.3 g/dL (3.2-4.8); Alkaline Phosphatase 192 U/L (46-116); Anion Gap 9 (5-15); Aspartate Aminotransferase 70 U/L (13-40); BUN/Creatinine Ratio 15.3 (10.0-20.0); Blood Urea Nitrogen 11 mg/dL (9-23); Calcium 8.5 mg/dL (8.7-10.4); Carbon Dioxide 23 mmol/L (20-30); Chloride 110 mmol/L (98-107); Glucose 119 mg/dL (74-106); Potassium 3.2 mmol/L (3.5-5.1); Sodium 142 mmol/L (136-145)
[2023-09-14 04:44] LABS: Bilirubin, Total 0.6 mg/dL (0.2-1.0)
[2023-09-14 05:05] LABS: Band Neutrophils % (manual) 0; Basophils % (manual) 0 (0.0-2.0)
[2023-09-14 05:06] LABS: Blast Cells 0; Myelocytes % 0; Reactive Lymphocytes 0
[2023-09-14] MEDS: IPRATROPIUM BROM 0.5 MG/2.5ML INH SOL NEB SCH ×3 (06:10→19:56)
[2023-09-14] MEDS: ALBUTEROL MEDNEB 2.5 mg/3ml NEB NEB SCH ×3 (06:11→19:56)
[2023-09-14] MEDS ORDERED: POTASSIUM CHL 20MEQ/100ML 100 ML IV ONE (06:15)
[2023-09-14 07:08] LABS: Base Excess -2.4 mmol/L (-2.0-2.0)
[2023-09-14 08:30] LABS: Eosinophils % (manual) 1 (0-7); Lymphocytes % (manual) 8 (10.0-50.0); Metamyelocytes % 1; Monocytes % (manual) 8 (0-12); Promyelocytes % 2
[2023-09-14 08:31] LABS: Platelet Estimate Adequate; Tear Drop Cells FEW
[2023-09-14] MEDS: PANTOPRAZOLE 40 MG/10 ML VIAL INJ IV SCH (10:24)
[2023-09-14] MEDS: ENOXAPARIN SOD 40 MG/0.4 ML SYRINGE SC SCH (10:25)
[2023-09-14] MEDS: LABETALOL HCL 5 MG/ML 4ML SYRINGE IV PRN (12:55)
[2023-09-14] MEDS: NOREPINEPHRINE BITARTRATE 32 MG in SODIUM CHL 0.9% 218 ML IV SCH (14:00)
[2023-09-14] MEDS: hydrALAZINE HCL 20 MG/ML VL IV PRN (20:52)
[2023-09-15] VITALS (110 sets, daily range): BP systolic 140–185; BP diastolic 93–119; PULSE 77–109; RESP 22–26; TEMP 96.3–99.3; O2SAT 90–100
[2023-09-15] MEDS: ALBUTEROL MEDNEB 2.5 mg/3ml NEB NEB SCH ×4 (00:09→19:13)
[2023-09-15] MEDS: IPRATROPIUM BROM 0.5 MG/2.5ML INH SOL NEB SCH ×4 (00:09→19:13)
[2023-09-15] MEDS: MIDAZOLAM DRIP 50 mg/50mL 50 ML IV SCH ×5 (00:30→20:30)
[2023-09-15] MEDS: PROPOFOL 100 ML IV SCH ×6 (02:13→21:25)
[2023-09-15] MEDS: LABETALOL HCL 5 MG/ML 4ML SYRINGE IV PRN ×5 (02:14→23:36)
[2023-09-15] MEDS: AMPICILLIN & SULBACTAM SODIUM 3 GM in SODIUM CHL 0.9% 100 ML IV SCH ×4 (03:32→21:42)
[2023-09-15 04:23] LABS: Hematocrit 30.4 % (41.0-53.0); Hemoglobin 10.2 g/dL (13.5-17.5); Mean Corpuscular Hemoglobin 28.8 pg (28.0-32.0); Mean Corpuscular Hgb Conc. 33.6 g/dL (32.0-36.0); Mean Corpuscular Volume 85.8 fL (80.0-100.0); Red Blood Cells 3.54 10^6/uL (4.5-5.90); Red Cell Distribution Width 14.7 % (11.8-14.3); White Blood Cell 6.6 10^3/uL (4.4-10.8)
[2023-09-15 04:31] LABS: Basophils % (manual) 0 (0.0-2.0); Blast Cells 0; Eosinophils % (manual) 0 (0-7); Metamyelocytes % 0; Promyelocytes % 0; Reactive Lymphocytes 0
[2023-09-15 04:36] LABS: Alanine Aminotransferase 57 U/L (7-40); Albumin 3.5 g/dL (3.2-4.8); Alkaline Phosphatase 195 U/L (46-116); Anion Gap 11 (5-15); Aspartate Aminotransferase 67 U/L (13-40); BUN/Creatinine Ratio 19.7 (10.0-20.0); Blood Urea Nitrogen 14 mg/dL (9-23); Calcium 8.6 mg/dL (8.7-10.4); Carbon Dioxide 22 mmol/L (20-30); Chloride 112 mmol/L (98-107); Glucose 117 mg/dL (74-106); Potassium 3.4 mmol/L (3.5-5.1); Sodium 145 mmol/L (136-145)
[2023-09-15 04:37] LABS: Bilirubin, Total 0.5 mg/dL (0.2-1.0); Total Protein 6.3 g/dL (5.7-8.2)
[2023-09-15] MEDS: hydrALAZINE HCL 20 MG/ML VL IV PRN ×2 (05:22→12:16)
[2023-09-15 07:00] LABS: Band Neutrophils % (manual) 9; Lymphocytes % (manual) 11 (10.0-50.0); Monocytes % (manual) 10 (0-12); Myelocytes % 3
[2023-09-15] MEDS ORDERED: POTASSIUM CHL 20MEQ/100ML 100 ML IV ONE (07:00)
[2023-09-15 07:02] LABS: Platelet Estimate Adequate
[2023-09-15 07:31] LABS: Base Excess -2.3 mmol/L (-2.0-2.0)
[2023-09-15] MEDS: fentaNYL Drip 2500mCg/250mlNS 250 ML IV SCH (08:37)
[2023-09-15] MEDS: PANTOPRAZOLE 40 MG/10 ML VIAL INJ IV SCH (09:54)
[2023-09-15] MEDS: ENOXAPARIN SOD 40 MG/0.4 ML SYRINGE SC SCH (09:56)
[2023-09-15] MEDS ORDERED: METOPROLOL TARTRATE 50 MG TAB PO ONE (14:00)
[2023-09-15] MEDS: cloNIDine HCL 0.1 MG TAB GT PRN (20:02)
[2023-09-15] MEDS: METOPROLOL TARTRATE 50 MG TAB PO SCH (21:45)
[2023-09-16] VITALS (110 sets, daily range): BP systolic 106–204; BP diastolic 57–136; PULSE 74–129; RESP 20–31; TEMP 96.3–100.9; O2SAT 88–100
[2023-09-16] MEDS: IPRATROPIUM BROM 0.5 MG/2.5ML INH SOL NEB SCH ×4 (00:08→18:57)
[2023-09-16] MEDS: ALBUTEROL MEDNEB 2.5 mg/3ml NEB NEB SCH ×4 (00:08→18:57)
[2023-09-16] MEDS: MIDAZOLAM DRIP 50 mg/50mL 50 ML IV SCH ×5 (01:30→21:24)
[2023-09-16] MEDS: PROPOFOL 100 ML IV SCH ×2 (01:32→05:02)
[2023-09-16] MEDS: cloNIDine HCL 0.1 MG TAB GT PRN (02:07)
[2023-09-16 04:15] LABS: Hematocrit 35.2 % (41.0-53.0); Hemoglobin 11.8 g/dL (13.5-17.5); Mean Corpuscular Hemoglobin 29.2 pg (28.0-32.0); Mean Corpuscular Hgb Conc. 33.7 g/dL (32.0-36.0); Mean Corpuscular Volume 86.6 fL (80.0-100.0); Red Blood Cells 4.06 10^6/uL (4.5-5.90); White Blood Cell 10.4 10^3/uL (4.4-10.8)
[2023-09-16] MEDS: LABETALOL HCL 5 MG/ML 4ML SYRINGE IV PRN ×2 (04:24→09:09)
[2023-09-16] MEDS: AMPICILLIN & SULBACTAM SODIUM 3 GM in SODIUM CHL 0.9% 100 ML IV SCH ×3 (04:26→16:16)
[2023-09-16 04:27] LABS: Alanine Aminotransferase 56 U/L (7-40); Albumin 3.8 g/dL (3.2-4.8); Alkaline Phosphatase 255 U/L (46-116); Anion Gap 11 (5-15); Aspartate Aminotransferase 54 U/L (13-40); BUN/Creatinine Ratio 22.7 (10.0-20.0); Bilirubin, Total 0.5 mg/dL (0.2-1.0); Blood Urea Nitrogen 17 mg/dL (9-23); Calcium 9.3 mg/dL (8.7-10.4); Carbon Dioxide 23 mmol/L (20-30); Chloride 112 mmol/L (98-107); Glucose 100 mg/dL (74-106); Potassium 3.4 mmol/L (3.5-5.1); Sodium 146 mmol/L (136-145); Total Protein 6.9 g/dL (5.7-8.2)
[2023-09-16 04:29] LABS: Basophils % (manual) 0 (0.0-2.0); Blast Cells 0; Promyelocytes % 0; Reactive Lymphocytes 0
[2023-09-16] MEDS ORDERED: ENALAPRILAT 1.25 MG/ML-1ML VIAL IV ONE (06:00)
[2023-09-16] MEDS ORDERED: dilTIAZem 25 MG/5 ML VIAL IV ONE (07:15)
[2023-09-16 07:49] LABS: Band Neutrophils % (manual) 20; Eosinophils % (manual) 5 (0-7); Lymphocytes % (manual) 9 (10.0-50.0); Metamyelocytes % 2; Monocytes % (manual) 3 (0-12); Myelocytes % 2; Platelet Estimate Adequate
[2023-09-16 08:30] LABS: Base Excess -1.2 mmol/L (-2.0-2.0)
[2023-09-16] MEDS: ENOXAPARIN SOD 40 MG/0.4 ML SYRINGE SC SCH (09:16)
[2023-09-16] MEDS: PANTOPRAZOLE 40 MG/10 ML VIAL INJ IV SCH (09:16)
[2023-09-16] MEDS ORDERED: POTASSIUM CHL 20MEQ/100ML 100 ML IV ONE (10:00)
[2023-09-16] MEDS: METOPROLOL TARTRATE 50 MG TAB PO SCH ×2 (10:13→21:08)
[2023-09-16] MEDS ORDERED: FUROSEMIDE 20 MG/2 ML VIAL ONE (11:34)
[2023-09-16] MEDS ORDERED: ARTIFICIAL TEAR OPTH(EYE) OINT 3.5GM EACHEYE ONE (11:45)
[2023-09-16] MEDS: ACETAMINOPHEN 325 MG TAB PO PRN ×2 (12:32→22:32)
[2023-09-16] MEDS ORDERED: LABETALOL HCL 5 MG/ML 4ML SYRINGE IV ONE (13:15)
[2023-09-16] MEDS: PIPERACILLIN-TAZOB 3.375GM 100 ML IV SCH (18:15)
[2023-09-16] MEDS: DESMOPRESSIN ACET 4 MCG/1 ML AMPULE IV SCH (21:14)
[2023-09-16] MEDS ORDERED: ARTIFICIAL TEAR OPTH(EYE) OINT 3.5GM EACHEYE SCH (22:00)
[2023-09-16] MEDS ORDERED: DESMOPRESSIN ACET 4 MCG/1 ML AMPULE IV SCH (22:00)
[2023-09-16] MEDS: ARTIFICIAL TEARS 15ml EACHEYE SCH (22:35)
[2023-09-16] MEDS: fentaNYL Drip 2500mCg/250mlNS 250 ML IV SCH (22:45)
[2023-09-17] VITALS (104 sets, daily range): BP systolic 50–145; BP diastolic 26–99; PULSE 83–137; RESP 12–27; TEMP 96.4–101.7; O2SAT 78–100
[2023-09-17] MEDS: IPRATROPIUM BROM 0.5 MG/2.5ML INH SOL NEB SCH ×5 (00:13→23:51)
[2023-09-17] MEDS: ALBUTEROL MEDNEB 2.5 mg/3ml NEB NEB SCH ×5 (00:13→23:51)
[2023-09-17] MEDS ORDERED: IBUPROFEN 600 MG TAB PO ONE (02:00)
[2023-09-17] MEDS ORDERED: ACETAMINOPHEN 500 MG TAB PO ONE (02:00)
[2023-09-17] MEDS: MIDAZOLAM DRIP 50 mg/50mL 50 ML IV SCH ×4 (02:30→22:28)
[2023-09-17] MEDS: PIPERACILLIN-TAZOB 3.375GM 100 ML IV SCH ×2 (02:30→10:32)
[2023-09-17 04:31] LABS: Anion Gap 10 (5-15); Calcium 8.8 mg/dL (8.7-10.4); Carbon Dioxide 25 mmol/L (20-30); Chloride 111 mmol/L (98-107); Potassium 3.8 mmol/L (3.5-5.1); Sodium 146 mmol/L (136-145)
[2023-09-17 04:37] LABS: BUN/Creatinine Ratio 25.3 (10.0-20.0); Blood Urea Nitrogen 23 mg/dL (9-23); Glucose 103 mg/dL (74-106)
[2023-09-17] MEDS ORDERED: ALBUMIN 25% 100 ML IV ONE ×2 (05:30)
[2023-09-17] MEDS ORDERED: PHENYLEPHRINE IV 250 ML IV ONE (05:46)
[2023-09-17] MEDS ORDERED: PHENYLEPHRINE HCL 10 MG/ML VL ONE ×2 (05:46→05:48)
[2023-09-17] MEDS: PHENYLEPHRINE INJ 80 MG in SODIUM CHL 0.9% 242 ML IV SCH (06:00)
[2023-09-17] MEDS: PROPOFOL 100 ML IV SCH (06:30)
[2023-09-17 09:21] LABS: Hematocrit 30.2 % (41.0-53.0); Hemoglobin 9.8 g/dL (13.5-17.5); Mean Corpuscular Hemoglobin 27.6 pg (28.0-32.0); Mean Corpuscular Hgb Conc. 32.3 g/dL (32.0-36.0); Mean Corpuscular Volume 85.3 fL (80.0-100.0); Red Blood Cells 3.54 10^6/uL (4.5-5.90); Red Cell Distribution Width 14.9 % (11.8-14.3); White Blood Cell 15.7 10^3/uL (4.4-10.8)
[2023-09-17 09:36] LABS: Base Excess -2.7 mmol/L (-2.0-2.0)
[2023-09-17 09:43] LABS: Basophils % (manual) 0 (0.0-2.0); Blast Cells 0; Metamyelocytes % 0; Myelocytes % 0; Promyelocytes % 0; Reactive Lymphocytes 0
[2023-09-17] MEDS: METOPROLOL TARTRATE 50 MG TAB PO SCH ×2 (10:00→22:00)
[2023-09-17] MEDS: DESMOPRESSIN ACET 4 MCG/1 ML AMPULE IV SCH ×2 (10:31→22:20)
[2023-09-17 10:32] LABS: Band Neutrophils % (manual) 3; Eosinophils % (manual) 1 (0-7); Lymphocytes % (manual) 14 (10.0-50.0); Monocytes % (manual) 9 (0-12); Platelet Estimate Increased
[2023-09-17 10:33] LABS: RBC Morphology Normal
[2023-09-17] MEDS: ENOXAPARIN SOD 40 MG/0.4 ML SYRINGE SC SCH (10:33)
[2023-09-17] MEDS: PANTOPRAZOLE 40 MG/10 ML VIAL INJ IV SCH (10:33)
[2023-09-17 14:30] LABS: Base Excess -1.2 mmol/L (-2.0-2.0)
[2023-09-17] MEDS: ARTIFICIAL TEARS 15ml EACHEYE SCH (22:21)
[2023-09-18] VITALS (116 sets, daily range): BP systolic 89–155; BP diastolic 44–104; PULSE 84–103; RESP 12–16; TEMP 96.8–100; O2SAT 89–97
[2023-09-18] MEDS: PHENYLEPHRINE INJ 80 MG in SODIUM CHL 0.9% 242 ML IV SCH ×2 (01:10→17:31)
[2023-09-18] MEDS: PIPERACILLIN-TAZOB 3.375GM 100 ML IV SCH ×3 (01:53→17:28)
[2023-09-18] MEDS: MIDAZOLAM DRIP 50 mg/50mL 50 ML IV SCH ×5 (03:30→23:30)
[2023-09-18 04:00] LABS: Basophils # (auto) 0.1 10 ^3/uL (0-0.2); Eosinophils # (auto) 0.4 10 ^3/uL (0-0.8); Hemoglobin 9.5 g/dL (13.5-17.5); Monocytes # (auto) 0.8 10 ^3/uL (0-1.3); Neutrophils # (auto) 9.4 10 ^3/uL (1.6-8.6)
[2023-09-18 04:02] LABS: Alanine Aminotransferase 45 U/L (7-40); Albumin 3.4 g/dL (3.2-4.8); Alkaline Phosphatase 231 U/L (46-116); Anion Gap 9 (5-15); BUN/Creatinine Ratio 26.2 (10.0-20.0); Basophils % (auto) 0.5 % (0.0-2.0); Blood Urea Nitrogen 22 mg/dL (9-23); Calcium 8.8 mg/dL (8.5-10.1); Carbon Dioxide 26 mmol/L (20-30); Chloride 113 mmol/L (98-107); Eosinophils % (auto) 3.3 % (0.0-7.0); Glucose 103 mg/dL (74-106); Hematocrit 29.4 % (41.0-53.0); Lymphocytes # (auto) 1.8 10 ^3/uL (0.4-5.4); Lymphocytes % (auto) 14.4 % (10.0-50.0); Mean Corpuscular Hemoglobin 28.2 pg (28.0-32.0); Mean Corpuscular Hgb Conc. 32.4 g/dL (32.0-36.0); Monocytes % (auto) 6.3 % (0.0-12.0); Neutrophils % (auto) 75.5 % (37.0-80.0); Potassium 3.1 mmol/L (3.5-5.1); Red Blood Cells 3.38 10^6/uL (4.5-5.90); Red Cell Distribution Width 14.5 % (11.8-14.3); Sodium 148 mmol/L (136-145); White Blood Cell 12.5 10^3/uL (4.4-10.8)
[2023-09-18 04:03] LABS: Aspartate Aminotransferase 35 U/L (13-40); Bilirubin, Total 0.6 mg/dL (0.2-1.0); Total Protein 6.1 g/dL (5.7-8.2)
[2023-09-18] MEDS: PROPOFOL 100 ML IV SCH (06:30)
[2023-09-18] MEDS: IPRATROPIUM BROM 0.5 MG/2.5ML INH SOL NEB SCH ×4 (06:44→23:40)
[2023-09-18] MEDS: ALBUTEROL MEDNEB 2.5 mg/3ml NEB NEB SCH ×4 (06:44→23:40)
[2023-09-18 07:20] LABS: Base Excess -0.3 mmol/L (-2.0-2.0)
[2023-09-18] MEDS: METOPROLOL TARTRATE 50 MG TAB PO SCH ×2 (10:00→22:00)
[2023-09-18] MEDS: ENOXAPARIN SOD 40 MG/0.4 ML SYRINGE SC SCH (10:28)
[2023-09-18] MEDS: PANTOPRAZOLE 40 MG/10 ML VIAL INJ IV SCH (10:28)
[2023-09-18] MEDS: DESMOPRESSIN ACET 4 MCG/1 ML AMPULE IV SCH ×2 (10:29→22:12)
[2023-09-18] MEDS ORDERED: POTASSIUM CHL 20MEQ/100ML 100 ML IV ONE (12:15)
[2023-09-18] MEDS ORDERED: CLINIMIX PER PHARMACY 0 ML IV SCH (12:30)
[2023-09-18 13:05] LABS: Magnesium 2.3 mg/dL (1.6-2.6)
[2023-09-18 13:07] LABS: Phosphorus 3.8 mg/dL (2.4-5.1)
[2023-09-18] MEDS ORDERED: DEXTROSE (50%) 50ML SYRG IV SCH (20:00)
[2023-09-18] MEDS: AMINO ACID INFUSION IN D10W 1,000 ML IV NR (20:17)
[2023-09-18] MEDS: ARTIFICIAL TEARS 15ml EACHEYE SCH (22:12)
[2023-09-19] VITALS (102 sets, daily range): BP systolic 81–235; BP diastolic 42–163; PULSE 89–128; RESP 14–17; TEMP 97.5–99.9; O2SAT 90–100
[2023-09-19] MEDS: ACCU-CHEK COMFORT CURVE STRIP VI SCH ×4 (00:16→17:39)
[2023-09-19] MEDS: PIPERACILLIN-TAZOB 3.375GM 100 ML IV SCH ×3 (01:51→17:39)
[2023-09-19] MEDS: MIDAZOLAM DRIP 50 mg/50mL 50 ML IV SCH ×4 (04:30→19:22)
[2023-09-19 04:35] LABS: Alanine Aminotransferase 48 U/L (7-40); Albumin 3.6 g/dL (3.2-4.8); Alkaline Phosphatase 281 U/L (46-116); Anion Gap 8 (5-15); Aspartate Aminotransferase 40 U/L (13-40); BUN/Creatinine Ratio 19.8 (10.0-20.0); Bilirubin, Total 0.9 mg/dL (0.2-1.0); Blood Urea Nitrogen 16 mg/dL (9-23); Calcium 8.8 mg/dL (8.7-10.4); Carbon Dioxide 25 mmol/L (20-30); Chloride 109 mmol/L (98-107); Glucose 159 mg/dL (74-106); Phosphorus 3.3 mg/dL (2.4-5.1); Potassium 3.8 mmol/L (3.5-5.1); Sodium 142 mmol/L (136-145); Total Protein 6.6 g/dL (5.7-8.2)
[2023-09-19] MEDS: InsuLIN REG 1unit/0.01ml Soln (100units/ml) SC SCH ×4 (06:22→17:39)
[2023-09-19] MEDS: IPRATROPIUM BROM 0.5 MG/2.5ML INH SOL NEB SCH ×3 (06:26→18:24)
[2023-09-19] MEDS: ALBUTEROL MEDNEB 2.5 mg/3ml NEB NEB SCH ×3 (06:26→18:24)
[2023-09-19] MEDS: PROPOFOL 100 ML IV SCH (06:30)
[2023-09-19 06:51] LABS: Base Excess 0.5 mmol/L (-2.0-2.0)
[2023-09-19] MEDS: AMINO ACID INFUSION IN D10W 1,000 ML IV NR (07:15)
[2023-09-19] MEDS: METOPROLOL TARTRATE 50 MG TAB PO SCH ×2 (10:00→22:18)
[2023-09-19] MEDS: ARTIFICIAL TEARS 15ml EACHEYE SCH ×2 (10:08→22:19)
[2023-09-19] MEDS: PANTOPRAZOLE 40 MG/10 ML VIAL INJ IV SCH (10:08)
[2023-09-19] MEDS: DESMOPRESSIN ACET 4 MCG/1 ML AMPULE IV SCH ×2 (10:08→22:18)
[2023-09-19] MEDS: ENOXAPARIN SOD 40 MG/0.4 ML SYRINGE SC SCH (10:09)
[2023-09-20] VITALS (106 sets, daily range): BP systolic 86–134; BP diastolic 46–90; PULSE 82–97; RESP 12–17; TEMP 95.5–99.3; O2SAT 86–100
[2023-09-20] MEDS: MIDAZOLAM DRIP 50 mg/50mL 50 ML IV SCH ×3 (00:30→10:30)
[2023-09-20] MEDS: ALBUTEROL MEDNEB 2.5 mg/3ml NEB NEB SCH ×4 (00:31→18:39)
[2023-09-20] MEDS: IPRATROPIUM BROM 0.5 MG/2.5ML INH SOL NEB SCH ×4 (00:31→18:39)
[2023-09-20] MEDS: PIPERACILLIN-TAZOB 3.375GM 100 ML IV SCH ×3 (02:40→17:42)
[2023-09-20 04:28] LABS: Alanine Aminotransferase 53 U/L (7-40); Alkaline Phosphatase 257 U/L (46-116); Anion Gap 5 (5-15); BUN/Creatinine Ratio 20.3 (10.0-20.0); Blood Urea Nitrogen 16 mg/dL (9-23); Calcium 9.1 mg/dL (8.7-10.4); Carbon Dioxide 26 mmol/L (20-30); Chloride 104 mmol/L (98-107); Glucose 121 mg/dL (74-106); Magnesium 1.9 mg/dL (1.6-2.6); Potassium 3.8 mmol/L (3.5-5.1)
[2023-09-20 04:29] LABS: Albumin 3.4 g/dL (3.2-4.8); Aspartate Aminotransferase 55 U/L (13-40)
[2023-09-20 04:30] LABS: Bilirubin, Total 0.9 mg/dL (0.2-1.0); Phosphorus 2.4 mg/dL (2.4-5.1); Total Protein 6.5 g/dL (5.7-8.2)
[2023-09-20 04:36] LABS: Sodium 135 mmol/L (136-145)
[2023-09-20] MEDS: PROPOFOL 100 ML IV SCH (05:09)
[2023-09-20] MEDS: InsuLIN REG 1unit/0.01ml Soln (100units/ml) SC SCH ×5 (06:00→23:44)
[2023-09-20] MEDS: PHENYLEPHRINE INJ 80 MG in SODIUM CHL 0.9% 242 ML IV SCH ×2 (06:00→19:44)
[2023-09-20] MEDS: ACCU-CHEK COMFORT CURVE STRIP VI SCH ×5 (06:12→23:40)
[2023-09-20 08:51] LABS: Base Excess -1.5 mmol/L (-2.0-2.0)
[2023-09-20] MEDS: ENOXAPARIN SOD 40 MG/0.4 ML SYRINGE SC SCH (09:58)
[2023-09-20] MEDS: DESMOPRESSIN ACET 4 MCG/1 ML AMPULE IV SCH ×2 (09:58→21:52)
[2023-09-20] MEDS: PANTOPRAZOLE 40 MG/10 ML VIAL INJ IV SCH (09:58)
[2023-09-20] MEDS: METOPROLOL TARTRATE 50 MG TAB PO SCH (09:59)
[2023-09-20] MEDS: ARTIFICIAL TEARS 15ml EACHEYE SCH ×2 (09:59→21:52)
[2023-09-20] MEDS ORDERED: LABETALOL HCL 5 MG/ML 4ML SYRINGE IV PRN (12:00)
[2023-09-20] MEDS ORDERED: SODIUM PHOSPHATES 20 MEQ in SODIUM CHL 0.9% 100 ML IV ONE (13:45)
[2023-09-20] MEDS: AMINO ACID INFUSION IN D10W 1,000 ML IV NR (20:28)
[2023-09-21] VITALS (115 sets, daily range): BP systolic 84–159; BP diastolic 45–110; PULSE 71–98; RESP 12–18; TEMP 94.3–100.2; O2SAT 94–99
[2023-09-21] MEDS: ALBUTEROL MEDNEB 2.5 mg/3ml NEB NEB SCH ×4 (00:02→18:13)
[2023-09-21] MEDS: IPRATROPIUM BROM 0.5 MG/2.5ML INH SOL NEB SCH ×4 (00:02→18:13)
[2023-09-21] MEDS: PIPERACILLIN-TAZOB 3.375GM 100 ML IV SCH ×3 (01:43→17:35)
[2023-09-21 04:32] LABS: Alanine Aminotransferase 49 U/L (7-40); Albumin 3.3 g/dL (3.2-4.8); Alkaline Phosphatase 248 U/L (46-116); Anion Gap 7 (5-15); Aspartate Aminotransferase 66 U/L (13-40); BUN/Creatinine Ratio 28.4 (10.0-20.0); Blood Urea Nitrogen 19 mg/dL (9-23); Calcium 8.6 mg/dL (8.7-10.4); Carbon Dioxide 26 mmol/L (20-30); Chloride 100 mmol/L (98-107); Glucose 118 mg/dL (74-106); Magnesium 1.8 mg/dL (1.6-2.6); Potassium 3.7 mmol/L (3.5-5.1); Sodium 133 mmol/L (136-145)
[2023-09-21 04:33] LABS: Bilirubin, Total 1.2 mg/dL (0.2-1.0); Phosphorus 3.3 mg/dL (2.4-5.1); Total Protein 6.3 g/dL (5.7-8.2)
[2023-09-21] MEDS: InsuLIN REG 1unit/0.01ml Soln (100units/ml) SC SCH ×3 (06:00→18:00)
[2023-09-21] MEDS: ACCU-CHEK COMFORT CURVE STRIP VI SCH ×3 (06:27→18:02)
[2023-09-21] MEDS: PANTOPRAZOLE 40 MG/10 ML VIAL INJ IV SCH (10:01)
[2023-09-21] MEDS: DESMOPRESSIN ACET 4 MCG/1 ML AMPULE IV SCH ×2 (10:01→21:36)
[2023-09-21] MEDS: ENOXAPARIN SOD 40 MG/0.4 ML SYRINGE SC SCH (10:01)
[2023-09-21] MEDS: ARTIFICIAL TEARS 15ml EACHEYE SCH ×2 (10:02→21:36)
[2023-09-21] MEDS: AMINO ACID INFUSION IN D10W 1,000 ML IV NR (21:36)
[2023-09-22] VITALS (112 sets, daily range): BP systolic 78–192; BP diastolic 42–133; PULSE 69–99; RESP 16–22; TEMP 93.6–99.3; O2SAT 95–99
[2023-09-22] MEDS: ACCU-CHEK COMFORT CURVE STRIP VI SCH ×5 (00:06→23:37)
[2023-09-22] MEDS: ALBUTEROL MEDNEB 2.5 mg/3ml NEB NEB SCH ×5 (00:15→23:33)
[2023-09-22] MEDS: IPRATROPIUM BROM 0.5 MG/2.5ML INH SOL NEB SCH ×5 (00:15→23:33)
[2023-09-22] MEDS: PIPERACILLIN-TAZOB 3.375GM 100 ML IV SCH ×3 (02:22→17:39)
[2023-09-22] MEDS: PHENYLEPHRINE INJ 80 MG in SODIUM CHL 0.9% 242 ML IV SCH (02:23)
[2023-09-22 05:40] LABS: Alanine Aminotransferase 46 U/L (7-40); Albumin 3.5 g/dL (3.2-4.8); Alkaline Phosphatase 268 U/L (46-116); Anion Gap 6 (5-15); Aspartate Aminotransferase 76 U/L (13-40); BUN/Creatinine Ratio 28.6 (10.0-20.0); Blood Urea Nitrogen 18 mg/dL (9-23); Calcium 8.8 mg/dL (8.7-10.4); Carbon Dioxide 26 mmol/L (20-30); Chloride 95 mmol/L (98-107); Glucose 118 mg/dL (74-106); Magnesium 1.7 mg/dL (1.6-2.6); Potassium 4.1 mmol/L (3.5-5.1)
[2023-09-22 05:41] LABS: Bilirubin, Total 1.3 mg/dL (0.2-1.0); Phosphorus 3.8 mg/dL (2.4-5.1); Total Protein 6.7 g/dL (5.7-8.2)
[2023-09-22 05:43] LABS: Sodium 127 mmol/L (136-145)
[2023-09-22] MEDS: InsuLIN REG 1unit/0.01ml Soln (100units/ml) SC SCH ×5 (05:50→23:38)
[2023-09-22 08:24] LABS: Base Excess 0.4 mmol/L (-2.0-2.0)
[2023-09-22] MEDS: ARTIFICIAL TEARS 15ml EACHEYE SCH ×2 (09:37→21:32)
[2023-09-22] MEDS: DESMOPRESSIN ACET 4 MCG/1 ML AMPULE IV SCH (09:37)
[2023-09-22] MEDS: PANTOPRAZOLE 40 MG/10 ML VIAL INJ IV SCH (09:37)
[2023-09-22] MEDS: AMINO ACID INFUSION IN D10W 1,000 ML IV NR (21:31)
[2023-09-23] VITALS (103 sets, daily range): BP systolic 86–133; BP diastolic 41–95; PULSE 76–111; RESP 12–17; TEMP 95.7–99.9; O2SAT 88–99
[2023-09-23] MEDS: PIPERACILLIN-TAZOB 3.375GM 100 ML IV SCH ×3 (02:25→18:00)
[2023-09-23 04:23] LABS: Hematocrit 25.7 % (41.0-53.0); Hemoglobin 8.6 g/dL (13.5-17.5); Mean Corpuscular Hemoglobin 28.7 pg (28.0-32.0); Mean Corpuscular Hgb Conc. 33.6 g/dL (32.0-36.0); Mean Corpuscular Volume 85.5 fL (80.0-100.0); Red Blood Cells 3.01 10^6/uL (4.5-5.90); Red Cell Distribution Width 14.7 % (11.8-14.3); White Blood Cell 11.1 10^3/uL (4.4-10.8)
[2023-09-23 04:29] LABS: Band Neutrophils % (manual) 0; Basophils % (manual) 0 (0.0-2.0); Blast Cells 0; Metamyelocytes % 0; Promyelocytes % 0; Reactive Lymphocytes 0
[2023-09-23 04:39] LABS: Alanine Aminotransferase 39 U/L (7-40); Albumin 3.6 g/dL (3.2-4.8); Alkaline Phosphatase 271 U/L (46-116); Anion Gap 5 (5-15); Aspartate Aminotransferase 80 U/L (13-40); BUN/Creatinine Ratio 31.3 (10.0-20.0); Blood Urea Nitrogen 21 mg/dL (9-23); Calcium 8.9 mg/dL (8.7-10.4); Carbon Dioxide 25 mmol/L (20-30); Chloride 92 mmol/L (98-107); Glucose 105 mg/dL (74-106); Magnesium 1.7 mg/dL (1.6-2.6); Phosphorus 3.7 mg/dL (2.4-5.1); Potassium 4.5 mmol/L (3.5-5.1)
[2023-09-23 04:40] LABS: Bilirubin, Total 1.1 mg/dL (0.2-1.0); Sodium 122 mmol/L (136-145); Total Protein 6.9 g/dL (5.7-8.2)
[2023-09-23] MEDS: ACCU-CHEK COMFORT CURVE STRIP VI SCH ×3 (05:29→18:00)
[2023-09-23] MEDS: InsuLIN REG 1unit/0.01ml Soln (100units/ml) SC SCH ×3 (05:32→18:00)
[2023-09-23] MEDS: ALBUTEROL MEDNEB 2.5 mg/3ml NEB NEB SCH ×3 (05:58→19:05)
[2023-09-23] MEDS: IPRATROPIUM BROM 0.5 MG/2.5ML INH SOL NEB SCH ×3 (05:58→19:05)
[2023-09-23] MEDS: PHENYLEPHRINE INJ 80 MG in SODIUM CHL 0.9% 242 ML IV SCH (06:14)
[2023-09-23 06:45] LABS: Base Excess -1.1 mmol/L (-2.0-2.0)
[2023-09-23] MEDS: PANTOPRAZOLE 40 MG/10 ML VIAL INJ IV SCH (09:32)
[2023-09-23 09:40] LABS: Eosinophils % (manual) 7 (0-7); Lymphocytes % (manual) 8 (10.0-50.0); Monocytes % (manual) 6 (0-12); Myelocytes % 1; Platelet Estimate Increased
[2023-09-23] MEDS ORDERED: DESMOPRESSIN ACET 4 MCG/1 ML AMPULE IV SCH (10:00)
[2023-09-23] MEDS: ARTIFICIAL TEARS 15ml EACHEYE SCH ×2 (11:58→22:26)
[2023-09-23] MEDS: SODIUM CHLORIDE 0.9% 1,000 ML IV SCH (12:13)
[2023-09-23] MEDS: AMINO ACID INFUSION IN D10W 1,000 ML IV NR (22:26)
[2023-09-24] VITALS (110 sets, daily range): BP systolic 87–124; BP diastolic 43–77; PULSE 75–105; RESP 11–20; TEMP 95.9–100.9; O2SAT 91–99
[2023-09-24] MEDS: IPRATROPIUM BROM 0.5 MG/2.5ML INH SOL NEB SCH ×4 (00:19→18:11)
[2023-09-24] MEDS: ALBUTEROL MEDNEB 2.5 mg/3ml NEB NEB SCH ×4 (00:19→18:11)
[2023-09-24] MEDS: SODIUM CHLORIDE 0.9% 1,000 ML IV SCH ×2 (01:00→14:10)
[2023-09-24] MEDS: PIPERACILLIN-TAZOB 3.375GM 100 ML IV SCH ×3 (02:00→17:47)
[2023-09-24 04:15] LABS: Calcium 9.2 mg/dL (8.7-10.4)
[2023-09-24 04:20] LABS: BUN/Creatinine Ratio 19.4 (10.0-20.0)
[2023-09-24 04:21] LABS: Albumin 3.6 g/dL (3.2-4.8)
[2023-09-24 04:22] LABS: Phosphorus 3.7 mg/dL (2.4-5.1)
[2023-09-24] MEDS: InsuLIN REG 1unit/0.01ml Soln (100units/ml) SC SCH ×4 (06:00→17:49)
[2023-09-24] MEDS: PHENYLEPHRINE INJ 80 MG in SODIUM CHL 0.9% 242 ML IV SCH (06:00)
[2023-09-24 08:26] LABS: Base Excess 0.4 mmol/L (-2.0-2.0)
[2023-09-24] MEDS: ACCU-CHEK COMFORT CURVE STRIP VI SCH ×4 (08:44→17:47)
[2023-09-24] MEDS: PANTOPRAZOLE 40 MG/10 ML VIAL INJ IV SCH (09:52)
[2023-09-24] MEDS: ARTIFICIAL TEARS 15ml EACHEYE SCH (09:54)
[2023-09-25] VITALS (36 sets, daily range): BP systolic 82–119; BP diastolic 47–77; PULSE 80–96; RESP 11–16; TEMP 96.8–99.3; O2SAT 93–97
[2023-09-25] MEDS: AMINO ACID INFUSION IN D10W 1,000 ML IV NR (00:33)
[2023-09-25] MEDS: ARTIFICIAL TEARS 15ml EACHEYE SCH ×2 (00:37→10:00)
[2023-09-25] MEDS: ACCU-CHEK COMFORT CURVE STRIP VI SCH ×2 (00:37→05:39)
[2023-09-25] MEDS: IPRATROPIUM BROM 0.5 MG/2.5ML INH SOL NEB SCH ×2 (00:55→07:08)
[2023-09-25] MEDS: ALBUTEROL MEDNEB 2.5 mg/3ml NEB NEB SCH ×2 (00:55→07:08)
[2023-09-25] MEDS: PIPERACILLIN-TAZOB 3.375GM 100 ML IV SCH ×2 (02:11→10:10)
[2023-09-25 04:05] LABS: Basophils # (auto) 0.1 10 ^3/uL (0-0.2); Eosinophils # (auto) 0.3 10 ^3/uL (0-0.8); Monocytes # (auto) 1.3 10 ^3/uL (0-1.3); Monocytes % (auto) 12.1 % (0.0-12.0)
[2023-09-25 04:08] LABS: Basophils % (auto) 0.7 % (0.0-2.0); Eosinophils % (auto) 2.9 % (0.0-7.0); Hematocrit 27.1 % (41.0-53.0); Lymphocytes % (auto) 9.8 % (10.0-50.0); Mean Corpuscular Hgb Conc. 33.2 g/dL (32.0-36.0); Mean Corpuscular Volume 87.4 fL (80.0-100.0); Neutrophils # (auto) 7.7 10 ^3/uL (1.6-8.6); Neutrophils % (auto) 74.5 % (37.0-80.0); Red Cell Distribution Width 14.7 % (11.8-14.3); White Blood Cell 10.3 10^3/uL (4.4-10.8)
[2023-09-25 04:27] LABS: INR 1.33 (0.9-1.15); Partial Thromboplastin Time 34.4 SEC (24.5-34.5); Prothrombin Time 13.7 sec (9.3-11.8)
[2023-09-25 04:37] LABS: Alanine Aminotransferase 62 U/L (7-40); Alkaline Phosphatase 553 U/L (46-116); Amylase 56 U/L (30-118); Anion Gap 8 (5-15); BUN/Creatinine Ratio 20.5 (10.0-20.0); Blood Urea Nitrogen 18 mg/dL (9-23); Calcium 9.8 mg/dL (8.5-10.1); Carbon Dioxide 27 mmol/L (20-30); Glucose 129 mg/dL (74-106)
[2023-09-25 04:38] LABS: Albumin 3.5 g/dL (3.2-4.8); Aspartate Aminotransferase 122 U/L (13-40); Bilirubin, Direct 0.7 mg/dL (<0.3)
[2023-09-25 04:39] LABS: Bilirubin, Total 0.8 mg/dL (0.2-1.0); Total Protein 6.5 g/dL (5.7-8.2)
[2023-09-25 04:42] LABS: Chloride 118 mmol/L (98-107); Sodium 153 mmol/L (136-145)
[2023-09-25 04:56] LABS: Lipase 68 U/L (12-53); Magnesium 2.5 mg/dL (1.6-2.6)
[2023-09-25] MEDS: SODIUM CHLORIDE 0.9% 1,000 ML IV SCH (05:39)
[2023-09-25] MEDS: InsuLIN REG 1unit/0.01ml Soln (100units/ml) SC SCH ×2 (05:39)
[2023-09-25] MEDS ORDERED: VASOPRESSIN 20 UNITS in SODIUM CHL 0.9% 99 ML IV SCH (05:45)
[2023-09-25] MEDS: PHENYLEPHRINE INJ 80 MG in SODIUM CHL 0.9% 242 ML IV SCH (06:00)
[2023-09-25] MEDS ORDERED: HEPARIN SODIUM (PORCINE) 5000 UNITS/ML 1ML VIAL SC ONE (06:00)
[2023-09-25 06:30] LABS: Urine Bacteria FEW /hpf (None Seen); Urine Blood Negative /uL (Negative); Urine Clarity Clear (Clear); Urine Color Yellow (Yellow); Urine Protein, UAD TRACE (Negative); Urine Sperm PRESENT /hpf (None Seen); Urine Urobilinogen Normal (Negative); Urine WBC 4 /hpf (0 - 3); Urine pH 5.5 (5.0-8.0)
[2023-09-25 07:55] LABS: Base Excess 0.4 mmol/L (-2.0-2.0)
[2023-09-25] MEDS: PANTOPRAZOLE 40 MG/10 ML VIAL INJ IV SCH (10:10)
[2023-09-25] MEDS ORDERED: HEPARIN SODIUM (PORCINE) 5000 UNITS/ML 1ML VIAL SC SCH (22:00)
== END 2023-09-25 09:30 | DRG 720 ==
LOC: EDBD 17:40 → ER 17:40 → TELE 21:55 → ICU WEST 23:00
PROVIDERS: ADMIT Internal Medicine Pulmonary Disease; ATTEND Internal Medicine
PROC: 5A1955Z Respiratory Ventilation, Greater than 96 Consecutive Hours (ICD-10-PCS; principal; 2023-09-08)
PROC: 0BH17EZ Insertion of Endotracheal Airway into Trachea, Via Natural or Artificial Opening (ICD-10-PCS; 2023-09-08)
PROC: 5A12012 Performance of Cardiac Output, Single, Manual (ICD-10-PCS; 2023-09-08)
PROC: 02H633Z Insertion of Infusion Device into Right Atrium, Percutaneous Approach (ICD-10-PCS; 2023-09-09)
PROC: B548ZZA Ultrasonography of Superior Vena Cava, Guidance (ICD-10-PCS; 2023-09-09)
DX: A41.9 Sepsis, unspecified organism (principal); G93.6 Cerebral edema; I46.9 Cardiac arrest, cause unspecified; J96.00 Acute respiratory failure, unspecified whether with hypoxia or hypercapnia; J69.0 Pneumonitis due to inhalation of food and vomit; G92.9 Unspecified toxic encephalopathy; E87.29 Other acidosis; G93.1 Anoxic brain damage, not elsewhere classified; I21.A1 Myocardial infarction type 2; E44.0 Moderate protein-calorie malnutrition; E83.51 Hypocalcemia; N39.0 Urinary tract infection, site not specified; T40.411A Poisoning by fentanyl or fentanyl analogs, accidental (unintentional), initial encounter; D64.9 Anemia, unspecified; E87.5 Hyperkalemia; G25.3 Myoclonus; I10 Essential (primary) hypertension; F17.210 Nicotine dependence, cigarettes, uncomplicated; J45.909 Unspecified asthma, uncomplicated; Z68.21 Body mass index [BMI] 21.0-21.9, adult; Y92.89 Other specified places as the place of occurrence of the external cause
CPT/HCPCS: 31500; 36415; 36600; 70450; 70496; 71045; 71250; 74018; 74176; 80048; 80053; 80069; 80074; 80202; 80307; 81001; 82150; 82248; 82550; 82805; 82962; 82977; 83605; 83615; 83690; 83735; 83880; 84100; 84484; 85007; 85025; 85027; 85610; 85730; 87040; 87070; 87081; 87086; 87205; 92950; 93005; 93017; 93306; 93970; 94002; 94003; 94640; 95819; C9113; G0378; J0330; J0692; J0696; J2250; J2543; J2704; J3480; J3490; P9047

== ENCOUNTER 2023-09-25 09:40 | Inpatient (IN) | payer OTHER ==
[2023-09-25] VITALS (16 sets, daily range): BP systolic 107–135; BP diastolic 68–92; PULSE 81–90; RESP 14–18; TEMP 97.2–98.8; O2SAT 94–98
[~2023-09-25] VITALS: Ht 180.3 cm; Wt 70.0 kg
[~2023-09-25 09:40] MED LIST changes: +BUPR8MIS BC; +DOCU-94 PO; +NALO4SPR2
[2023-09-25] MEDS ORDERED: HETASTARCH 500 ML IV ONE ×3 (10:30→14:45)
[2023-09-25] MEDS ORDERED: methylPREDNISolone SOD SUCC 2,000 MG in SODIUM CHL 0.9% 100 ML IV ONE (10:30)
[2023-09-25] MEDS ORDERED: VANCOMYCIN 1,500 MG in D5W 5% 250 ML IV ONE (10:30)
[2023-09-25] MEDS ORDERED: THIAMINE 100mg/ml INJ (200mg/2ml VIAL) IM ONE (11:15)
[2023-09-25 12:31] LABS: Basophils # (auto) 0.1 10 ^3/uL (0-0.2); Monocytes # (auto) 1.2 10 ^3/uL (0-1.3); Monocytes % (auto) 11.5 % (0.0-12.0); White Blood Cell 10.7 10^3/uL (4.4-10.8)
[2023-09-25 12:33] LABS: Basophils % (auto) 0.9 % (0.0-2.0); Eosinophils # (auto) 0.3 10 ^3/uL (0-0.8); Hematocrit 27.6 % (41.0-53.0); Hemoglobin 9.1 g/dL (13.5-17.5); Lymphocytes # (auto) 1.1 10 ^3/uL (0.4-5.4); Lymphocytes % (auto) 10.7 % (10.0-50.0); Mean Corpuscular Hemoglobin 29.2 pg (28.0-32.0); Mean Corpuscular Volume 88.4 fL (80.0-100.0); Neutrophils # (auto) 7.9 10 ^3/uL (1.6-8.6); Neutrophils % (auto) 73.9 % (37.0-80.0); Red Blood Cells 3.13 10^6/uL (4.5-5.90); Red Cell Distribution Width 15.4 % (11.8-14.3)
[2023-09-25 12:46] LABS: Alanine Aminotransferase 84 U/L (7-40); Albumin 4.1 g/dL (3.2-4.8); Alkaline Phosphatase 573 U/L (46-116); Amylase 45 U/L (30-118); Anion Gap 11 (5-15); Aspartate Aminotransferase 154 U/L (13-40); BUN/Creatinine Ratio 16.3 (10.0-20.0); Blood Urea Nitrogen 17 mg/dL (9-23); Calcium 10.2 mg/dL (8.5-10.1); Carbon Dioxide 24 mmol/L (20-30); Chloride 118 mmol/L (98-107); Creatine Kinase IFCC 370 U/L (46-171); Glucose 160 mg/dL (74-106); Potassium 3.6 mmol/L (3.5-5.1); Sodium 153 mmol/L (136-145)
[2023-09-25 12:47] LABS: Bilirubin, Direct 0.7 mg/dL (<0.3); Bilirubin, Total 0.9 mg/dL (0.2-1.0); Phosphorus 4.6 mg/dL (2.4-5.1); Total Protein 7.9 g/dL (5.7-8.2)
[2023-09-25 13:07] LABS: Lipase 58 U/L (12-53); Magnesium 2.4 mg/dL (1.6-2.6)
[2023-09-25 13:16] LABS: Urine Bacteria NONE SEEN /hpf (None Seen); Urine Blood TRACE /uL (Negative); Urine Clarity Clear (Clear); Urine Color Yellow (Yellow); Urine Hyaline Cast FEW /lpf (0 - 2); Urine Mucus FEW (None Seen); Urine Protein, UAD TRACE (Negative); Urine Specific Gravity 1.019 (1.001-1.035); Urine Urobilinogen Normal (Negative); Urine WBC 1 /hpf (0 - 3)
[2023-09-25] MEDS: ACCU-CHEK COMFORT CURVE STRIP VI SCH ×5 (13:23→19:51)
[2023-09-25 13:45] LABS: INR 1.42 (0.9-1.15); Partial Thromboplastin Time 35.3 SEC (24.5-34.5); Prothrombin Time 14.6 sec (9.3-11.8)
[2023-09-25] MEDS ORDERED: THIAMINE 100mg/ml INJ (200mg/2ml VIAL) IV ONE (14:00)
[2023-09-25] MEDS ORDERED: DOBUTamine 1000MCG/ML 250 ML IV SCH (14:45)
[2023-09-25] MEDS: NOREPINEPHRINE 8 MG/250ML KIT 250 ML IV SCH (14:47)
[2023-09-25] MEDS: POTASSIUM CHL 20MEQ/100ML 100 ML IV SCH ×2 (16:26→18:09)
[2023-09-25 16:56] LABS: Base Excess -0.9 mmol/L (-2.0-2.0)
[2023-09-25 18:18] LABS: Eosinophils # (auto) 0.2 10 ^3/uL (0-0.8); Hemoglobin 7.2 g/dL (13.5-17.5); Lymphocytes # (auto) 0.9 10 ^3/uL (0.4-5.4)
[2023-09-25 18:20] LABS: Basophils # (auto) 0.1 10 ^3/uL (0-0.2); Basophils % (auto) 0.6 % (0.0-2.0); Eosinophils % (auto) 2.4 % (0.0-7.0); Hematocrit 22.2 % (41.0-53.0); Mean Corpuscular Hemoglobin 28.3 pg (28.0-32.0); Mean Corpuscular Hgb Conc. 32.5 g/dL (32.0-36.0); Mean Corpuscular Volume 87.2 fL (80.0-100.0); Monocytes # (auto) 0.8 10 ^3/uL (0-1.3); Monocytes % (auto) 8.8 % (0.0-12.0); Neutrophils # (auto) 7.6 10 ^3/uL (1.6-8.6); Neutrophils % (auto) 79.2 % (37.0-80.0); Red Blood Cells 2.54 10^6/uL (4.5-5.90); Red Cell Distribution Width 15.5 % (11.8-14.3); White Blood Cell 9.6 10^3/uL (4.4-10.8)
[2023-09-25 18:30] LABS: Phosphorus 4.7 mg/dL (2.4-5.1)
[2023-09-25 18:31] LABS: Alanine Aminotransferase 71 U/L (7-40); Albumin 3.2 g/dL (3.2-4.8); Alkaline Phosphatase 479 U/L (46-116); Anion Gap 5 (5-15); Aspartate Aminotransferase 135 U/L (13-40); BUN/Creatinine Ratio 18.6 (10.0-20.0); Blood Urea Nitrogen 19 mg/dL (9-23); Calcium 8.8 mg/dL (8.7-10.4); Carbon Dioxide 25 mmol/L (20-30); Chloride 119 mmol/L (98-107); Glucose 150 mg/dL (74-106); Lipase 51 U/L (12-53); Phosphorus 4.9 mg/dL (2.4-5.1); Potassium 4.7 mmol/L (3.5-5.1); Sodium 149 mmol/L (136-145); Total Protein 6.2 g/dL (5.7-8.2)
[2023-09-25 18:34] LABS: INR 1.53 (0.9-1.15); Partial Thromboplastin Time 36.1 SEC (24.5-34.5); Prothrombin Time 15.6 sec (9.3-11.8)
[2023-09-25] MEDS ORDERED: ALBUMIN 25% 100 ML IV ONE (18:45)
[2023-09-25] MEDS ORDERED: FUROSEMIDE 40 MG/4 ML VIAL IV ONE (18:45)
[2023-09-25 18:53] LABS: Amylase 73 U/L (30-118); Bilirubin, Direct 0.7 mg/dL (<0.3); Creatine Kinase IFCC 259 U/L (46-171)
[2023-09-25 19:12] LABS: Base Excess -0.6 mmol/L (-2.0-2.0)
[2023-09-25] MEDS: methylPREDNISolone SOD SUCC 500 MG in SODIUM CHL 0.9% 100 ML IV SCH (19:30)
[2023-09-25] MEDS: PIPERACILLIN-TAZOB 3.375GM 100 ML IV SCH (21:39)
[2023-09-25] MEDS ORDERED: DEXTROSE (50%) 50ML SYRG IV PRN (22:00)
[2023-09-26] VITALS (24 sets, daily range): BP systolic 105–158; BP diastolic 51–96; PULSE 79–96; RESP 10–14; TEMP 97.5–99.9; O2SAT 97–100
[2023-09-26] MEDS ORDERED: InsuLIN REG 1unit/0.01ml Soln (100units/ml) SC SCH
[2023-09-26 00:35] LABS: Base Excess -1.2 mmol/L (-2.0-2.0)
[2023-09-26 00:35] LABS: Alanine Aminotransferase 76 U/L (7-40); Albumin 3.8 g/dL (3.2-4.8); Alkaline Phosphatase 429 U/L (46-116); Anion Gap 11 (5-15); Aspartate Aminotransferase 122 U/L (13-40); BUN/Creatinine Ratio 21.8 (10.0-20.0); Bilirubin, Direct 0.8 mg/dL (<0.3); Bilirubin, Total 1.1 mg/dL (0.2-1.0); Blood Urea Nitrogen 26 mg/dL (9-23); Calcium 9.4 mg/dL (8.5-10.1); Carbon Dioxide 23 mmol/L (20-30); Chloride 113 mmol/L (98-107); Glucose 231 mg/dL (74-106); Potassium 4.7 mmol/L (3.5-5.1); Sodium 147 mmol/L (136-145); Total Protein 6.9 g/dL (5.7-8.2)
[2023-09-26 00:37] LABS: Basophils # (auto) 0 10 ^3/uL (0-0.2); Lymphocytes # (auto) 0.5 10 ^3/uL (0.4-5.4)
[2023-09-26 00:39] LABS: Basophils % (auto) 0.3 % (0.0-2.0); Eosinophils # (auto) 0.1 10 ^3/uL (0-0.8); Eosinophils % (auto) 0.6 % (0.0-7.0); Hematocrit 24.9 % (41.0-53.0); Hemoglobin 8.3 g/dL (13.5-17.5); Mean Corpuscular Hemoglobin 29.1 pg (28.0-32.0); Mean Corpuscular Hgb Conc. 33.2 g/dL (32.0-36.0); Mean Corpuscular Volume 87.9 fL (80.0-100.0); Monocytes # (auto) 0.1 10 ^3/uL (0-1.3); Monocytes % (auto) 1.5 % (0.0-12.0); Neutrophils # (auto) 8.3 10 ^3/uL (1.6-8.6); Neutrophils % (auto) 91.6 % (37.0-80.0); Red Blood Cells 2.83 10^6/uL (4.5-5.90); Red Cell Distribution Width 15.5 % (11.8-14.3)
[2023-09-26 01:04] LABS: INR 1.56 (0.9-1.15); Partial Thromboplastin Time 40.2 SEC (24.5-34.5); Prothrombin Time 15.9 sec (9.3-11.8)
[2023-09-26] MEDS: methylPREDNISolone SOD SUCC 500 MG in SODIUM CHL 0.9% 100 ML IV SCH ×3 (02:06→18:09)
[2023-09-26 02:27] LABS: Phosphorus 6.9 mg/dL (2.4-5.1)
[2023-09-26] MEDS ORDERED: FUROSEMIDE 40 MG/4 ML VIAL IV ONE (02:45)
[2023-09-26] MEDS ORDERED: FUROSEMIDE 40 MG/4 ML VIAL ONE (02:56)
[2023-09-26] MEDS: VASOPRESSIN 20 UNITS in SODIUM CHL 0.9% 99 ML IV SCH ×3 (03:10→16:09)
[2023-09-26] MEDS: DOBUTamine 1000MCG/ML 250 ML IV SCH (03:10)
[2023-09-26] MEDS: InsuLIN REG 1unit/0.01ml Soln (100units/ml) SC SCH ×3 (04:00→07:54)
[2023-09-26 04:07] LABS: Hematocrit 24.6 % (41.0-53.0); Hemoglobin 8.2 g/dL (13.5-17.5); Mean Corpuscular Hemoglobin 28.9 pg (28.0-32.0); Mean Corpuscular Hgb Conc. 33.4 g/dL (32.0-36.0); Mean Corpuscular Volume 86.6 fL (80.0-100.0); Red Blood Cells 2.84 10^6/uL (4.5-5.90); White Blood Cell 9.8 10^3/uL (4.4-10.8)
[2023-09-26 04:22] LABS: Phosphorus 5.7 mg/dL (2.4-5.1)
[2023-09-26 04:26] LABS: Alanine Aminotransferase 70 U/L (7-40); Albumin 3.9 g/dL (3.2-4.8); Alkaline Phosphatase 454 U/L (46-116); Anion Gap 11 (5-15); Aspartate Aminotransferase 117 U/L (13-40); BUN/Creatinine Ratio 19.6 (10.0-20.0); Bilirubin, Total 1.2 mg/dL (0.2-1.0); Blood Urea Nitrogen 28 mg/dL (9-23); Calcium 9.6 mg/dL (8.7-10.4); Carbon Dioxide 23 mmol/L (20-30); Chloride 112 mmol/L (98-107); Glucose 152 mg/dL (74-106); Magnesium 2.1 mg/dL (1.6-2.6); Potassium 4.1 mmol/L (3.5-5.1); Sodium 146 mmol/L (136-145); Total Protein 7.1 g/dL (5.7-8.2)
[2023-09-26 04:43] LABS: Band Neutrophils % (manual) 0; Basophils % (manual) 0 (0.0-2.0); Blast Cells 0; Eosinophils % (manual) 0 (0-7); Promyelocytes % 0; Reactive Lymphocytes 0
[2023-09-26 04:48] LABS: Bilirubin, Direct 0.8 mg/dL (<0.3)
[2023-09-26] MEDS: PIPERACILLIN-TAZOB 3.375GM 100 ML IV SCH ×3 (05:53→22:18)
[2023-09-26 05:59] LABS: INR 1.58 (0.9-1.15); Partial Thromboplastin Time 37.6 SEC (24.5-34.5); Prothrombin Time 16.1 sec (9.3-11.8)
[2023-09-26 06:39] LABS: Base Excess 1.7 mmol/L (-2.0-2.0)
[2023-09-26 07:20] LABS: Urine Bacteria FEW /hpf (None Seen); Urine Blood Negative /uL (Negative); Urine Clarity Clear (Clear); Urine Color Colorless (Yellow); Urine Hyaline Cast MANY /lpf (0 - 2); Urine Protein, UAD Negative (Negative); Urine Specific Gravity 1.011 (1.001-1.035); Urine Urobilinogen Normal (Negative); Urine WBC 4 /hpf (0 - 3)
[2023-09-26] MEDS: FUROSEMIDE 40 MG/4 ML VIAL IV SCH ×5 (08:00→23:14)
[2023-09-26 08:01] LABS: Platelet Estimate Increased
[2023-09-26 08:07] LABS: Lymphocytes % (manual) 2 (10.0-50.0); Metamyelocytes % 4; Monocytes % (manual) 1 (0-12); Myelocytes % 1
[2023-09-26] MEDS ORDERED: [UNRECOGNIZED DRUG - OTHER] IV SCH (08:15)
[2023-09-26] MEDS ORDERED: DEXTROSE (50%) 50ML SYRG IV PRN ×2 (08:15)
[2023-09-26] MEDS ORDERED: BENZOCAINE (DENTAL) 20 % SPRAY 60ML MT ONE (08:35)
[2023-09-26] MEDS ORDERED: LIDOCAINE 2% JELLY 11ml (GLYDO) ONE (08:35)
[2023-09-26] MEDS ORDERED: MIDAZOLAM HCL 5 MG/ML-1ML VIAL ONE (08:36)
[2023-09-26] MEDS ORDERED: EPINEPHrine HCL 1 MG/1 ML AMP ONE (08:36)
[2023-09-26] MEDS ORDERED: GLYCOPYRROLATE 0.2 MG/ML 1ML VIAL ONE (08:36)
[2023-09-26] MEDS ORDERED: LIDOCAINE 2%HCL (LOCAL ANESTH.) INJ 20ML MDV ONE (08:36)
[2023-09-26] MEDS ORDERED: fentaNYL CITRATE 100 MCG/2 ML VL ONE (08:37)
[2023-09-26] MEDS ORDERED: ACCU-CHEK COMFORT CURVE STRIP VI SCH ×2 (09:00)
[2023-09-26] MEDS: NOREPINEPHRINE 8 MG/250ML KIT 250 ML IV SCH (09:22)
[2023-09-26] MEDS: INSULIN DRIP 100 UNIT/100ML 100 ML IV SCH (09:57)
[2023-09-26] MEDS: ACCU-CHEK COMFORT CURVE STRIP VI SCH ×5 (10:03→18:08)
[2023-09-26 10:44] LABS: Basophils # (auto) 0 10 ^3/uL (0-0.2); Eosinophils # (auto) 0 10 ^3/uL (0-0.8); Hematocrit 23.2 % (41.0-53.0); Hemoglobin 7.9 g/dL (13.5-17.5)
[2023-09-26 10:46] LABS: Basophils % (auto) 0.4 % (0.0-2.0); Eosinophils % (auto) 0.1 % (0.0-7.0); Lymphocytes # (auto) 0.7 10 ^3/uL (0.4-5.4); Lymphocytes % (auto) 7.7 % (10.0-50.0); Mean Corpuscular Hemoglobin 29.4 pg (28.0-32.0); Mean Corpuscular Volume 86.4 fL (80.0-100.0); Monocytes # (auto) 0.2 10 ^3/uL (0-1.3); Monocytes % (auto) 2.5 % (0.0-12.0); Neutrophils # (auto) 8.6 10 ^3/uL (1.6-8.6); Neutrophils % (auto) 89.3 % (37.0-80.0); Red Blood Cells 2.68 10^6/uL (4.5-5.90); Red Cell Distribution Width 15.2 % (11.8-14.3); White Blood Cell 9.6 10^3/uL (4.4-10.8)
[2023-09-26] MEDS ORDERED: POTASSIUM CHLORIDE IV ONE (11:00)
[2023-09-26] MEDS ORDERED: DEXTROSE 50% IV ONE (11:00)
[2023-09-26] MEDS ORDERED: INSULIN R IV ONE (11:00)
[2023-09-26 11:09] LABS: Phosphorus 6.2 mg/dL (2.4-5.1)
[2023-09-26 11:10] LABS: Alanine Aminotransferase 66 U/L (7-40); Albumin 3.9 g/dL (3.2-4.8); Alkaline Phosphatase 421 U/L (46-116); Anion Gap 11 (5-15); Aspartate Aminotransferase 116 U/L (13-40); BUN/Creatinine Ratio 21.7 (10.0-20.0); Blood Urea Nitrogen 36 mg/dL (9-23); Calcium 9.6 mg/dL (8.7-10.4); Carbon Dioxide 25 mmol/L (20-30); Chloride 105 mmol/L (98-107); Glucose 176 mg/dL (74-106); Potassium 3.9 mmol/L (3.5-5.1); Sodium 141 mmol/L (136-145)
[2023-09-26 11:11] LABS: INR 1.63 (0.9-1.15); Partial Thromboplastin Time 37.1 SEC (24.5-34.5); Prothrombin Time 16.6 sec (9.3-11.8); Total Protein 7.1 g/dL (5.7-8.2)
[2023-09-26 11:37] LABS: Bilirubin, Direct 0.6 mg/dL (<0.3)
[2023-09-26 11:55] LABS: Urine Bacteria NONE SEEN /hpf (None Seen); Urine Blood Negative /uL (Negative); Urine Clarity Clear (Clear); Urine Color Colorless (Yellow); Urine Hyaline Cast FEW /lpf (0 - 2); Urine Mucus FEW (None Seen); Urine Protein, UAD Negative (Negative); Urine Specific Gravity 1.014 (1.001-1.035); Urine Urobilinogen Normal (Negative); Urine WBC 1 /hpf (0 - 3)
[2023-09-26 12:47] LABS: Base Excess -0.3 mmol/L (-2.0-2.0)
[2023-09-26 16:46] LABS: Basophils # (auto) 0 10 ^3/uL (0-0.2); Eosinophils # (auto) 0 10 ^3/uL (0-0.8); Hemoglobin 7.6 g/dL (13.5-17.5); Red Cell Distribution Width 15.4 % (11.8-14.3)
[2023-09-26 16:48] LABS: Basophils % (auto) 0.3 % (0.0-2.0); Hematocrit 22.9 % (41.0-53.0); Lymphocytes # (auto) 0.6 10 ^3/uL (0.4-5.4); Lymphocytes % (auto) 6.1 % (10.0-50.0); Mean Corpuscular Hemoglobin 28.7 pg (28.0-32.0); Mean Corpuscular Volume 87.1 fL (80.0-100.0); Monocytes # (auto) 0.5 10 ^3/uL (0-1.3); Monocytes % (auto) 4.9 % (0.0-12.0); Neutrophils # (auto) 8.4 10 ^3/uL (1.6-8.6); Neutrophils % (auto) 88.7 % (37.0-80.0); Red Blood Cells 2.63 10^6/uL (4.5-5.90); White Blood Cell 9.5 10^3/uL (4.4-10.8)
[2023-09-26 16:50] LABS: Urine Bacteria NONE SEEN /hpf (None Seen); Urine Blood Negative /uL (Negative); Urine Clarity Clear (Clear); Urine Color Colorless (Yellow); Urine Mucus FEW (None Seen); Urine Protein, UAD Negative (Negative); Urine Specific Gravity 1.008 (1.001-1.035); Urine Urobilinogen Normal (Negative); Urine WBC <1 /hpf (0 - 3)
[2023-09-26 17:03] LABS: INR 1.6 (0.9-1.15); Partial Thromboplastin Time 39.4 SEC (24.5-34.5); Prothrombin Time 16.3 sec (9.3-11.8)
[2023-09-26 17:05] LABS: Bilirubin, Direct 0.6 mg/dL (<0.3)
[2023-09-26 17:07] LABS: Phosphorus 5.8 mg/dL (2.4-5.1)
[2023-09-26] MEDS ORDERED: DEXTROSE 10% 1,000 ML IV ONE (17:15)
[2023-09-26 17:23] LABS: Alanine Aminotransferase 63 U/L (7-40); Alkaline Phosphatase 425 U/L (46-116); Anion Gap 11 (5-15); Aspartate Aminotransferase 92 U/L (13-40); BUN/Creatinine Ratio 20.5 (10.0-20.0); Bilirubin, Total 0.9 mg/dL (0.2-1.0); Blood Urea Nitrogen 38 mg/dL (9-23); Calcium 9.9 mg/dL (8.7-10.4); Carbon Dioxide 26 mmol/L (20-30); Chloride 105 mmol/L (98-107); Glucose 104 mg/dL (74-106); Magnesium 2.1 mg/dL (1.6-2.6); Potassium 3.2 mmol/L (3.5-5.1); Sodium 142 mmol/L (136-145); Total Protein 7.2 g/dL (5.7-8.2)
[2023-09-26] MEDS ORDERED: DEXTROSE 10% 1,000 ML IV SCH (17:45)
[2023-09-26 18:45] LABS: Base Excess 2.6 mmol/L (-2.0-2.0)
[2023-09-26] MEDS: POTASSIUM CHL 20MEQ/100ML 100 ML IV SCH ×3 (18:56→21:59)
[2023-09-26] MEDS ORDERED: acetaZOLAMIDE SODIUM 500 MG VL IV SCH (22:00)
[2023-09-26] MEDS: THIAMINE 100mg/ml INJ (200mg/2ml VIAL) IV SCH (22:18)
[2023-09-26 22:32] LABS: Urine Bacteria NONE SEEN /hpf (None Seen); Urine Blood Negative /uL (Negative); Urine Clarity Clear (Clear); Urine Color Colorless (Yellow); Urine Protein, UAD Negative (Negative); Urine Urobilinogen Normal (Negative); Urine WBC <1 /hpf (0 - 3)
[2023-09-26 22:39] LABS: Alanine Aminotransferase 68 U/L (7-40); Albumin 3.9 g/dL (3.2-4.8); Alkaline Phosphatase 396 U/L (46-116); Anion Gap 8 (5-15); Aspartate Aminotransferase 90 U/L (13-40); BUN/Creatinine Ratio 23.2 (10.0-20.0); Bilirubin, Direct 0.5 mg/dL (<0.3); Bilirubin, Total 0.7 mg/dL (0.2-1.0); Blood Urea Nitrogen 43 mg/dL (9-23); Carbon Dioxide 28 mmol/L (20-30); Chloride 105 mmol/L (98-107); Glucose 100 mg/dL (74-106); Potassium 3.6 mmol/L (3.5-5.1); Sodium 141 mmol/L (136-145)
[2023-09-26] MEDS: acetaZOLAMIDE SODIUM 500 MG VL IV SCH (23:27)
[2023-09-27] VITALS (23 sets, daily range): BP systolic 113–152; BP diastolic 56–96; PULSE 77–87; RESP 10–18; TEMP 95–99.1; O2SAT 96–100
[2023-09-27 00:12] LABS: Base Excess 3.5 mmol/L (-2.0-2.0)
[2023-09-27 00:33] LABS: Basophils # (auto) 0 10 ^3/uL (0-0.2); Basophils % (auto) 0.2 % (0.0-2.0); Eosinophils # (auto) 0 10 ^3/uL (0-0.8); Hematocrit 22.5 % (41.0-53.0); Hemoglobin 7.7 g/dL (13.5-17.5); Lymphocytes # (auto) 0.5 10 ^3/uL (0.4-5.4); Lymphocytes % (auto) 5.5 % (10.0-50.0); Mean Corpuscular Hemoglobin 29.3 pg (28.0-32.0); Mean Corpuscular Hgb Conc. 34.1 g/dL (32.0-36.0); Mean Corpuscular Volume 86.1 fL (80.0-100.0); Monocytes # (auto) 0.3 10 ^3/uL (0-1.3); Monocytes % (auto) 3.4 % (0.0-12.0); Neutrophils # (auto) 7.9 10 ^3/uL (1.6-8.6); Neutrophils % (auto) 90.9 % (37.0-80.0); Red Blood Cells 2.61 10^6/uL (4.5-5.90); Red Cell Distribution Width 15.4 % (11.8-14.3); White Blood Cell 8.7 10^3/uL (4.4-10.8)
[2023-09-27 00:43] LABS: Phosphorus 4.9 mg/dL (2.4-5.1)
[2023-09-27 00:49] LABS: INR 1.65 (0.9-1.15); Partial Thromboplastin Time 41.6 SEC (24.5-34.5); Prothrombin Time 16.8 sec (9.3-11.8)
[2023-09-27] MEDS: VASOPRESSIN 20 UNITS in SODIUM CHL 0.9% 99 ML IV SCH ×3 (02:22→19:00)
[2023-09-27] MEDS: acetaZOLAMIDE SODIUM 500 MG VL IV SCH ×6 (02:22→22:15)
[2023-09-27] MEDS: methylPREDNISolone SOD SUCC 500 MG in SODIUM CHL 0.9% 100 ML IV SCH ×3 (02:30→18:55)
[2023-09-27] MEDS: DOBUTamine 1000MCG/ML 250 ML IV SCH (03:13)
[2023-09-27] MEDS: FUROSEMIDE 40 MG/4 ML VIAL IV SCH ×6 (03:20→22:15)
[2023-09-27 04:09] LABS: Basophils # (auto) 0 10 ^3/uL (0-0.2); Eosinophils # (auto) 0 10 ^3/uL (0-0.8); Mean Corpuscular Volume 88.7 fL (80.0-100.0); Monocytes # (auto) 0.4 10 ^3/uL (0-1.3); Red Cell Distribution Width 15.3 % (11.8-14.3)
[2023-09-27 04:11] LABS: Hematocrit 22.3 % (41.0-53.0); Hemoglobin 7.3 g/dL (13.5-17.5); Lymphocytes # (auto) 0.5 10 ^3/uL (0.4-5.4); Lymphocytes % (auto) 5.6 % (10.0-50.0); Mean Corpuscular Hemoglobin 29.1 pg (28.0-32.0); Mean Corpuscular Hgb Conc. 32.9 g/dL (32.0-36.0); Monocytes % (auto) 4.7 % (0.0-12.0); Neutrophils # (auto) 7.2 10 ^3/uL (1.6-8.6); Neutrophils % (auto) 89.7 % (37.0-80.0); Red Blood Cells 2.51 10^6/uL (4.5-5.90); White Blood Cell 8.1 10^3/uL (4.4-10.8)
[2023-09-27 04:13] LABS: Urine Bacteria FEW /hpf (None Seen); Urine Blood Negative /uL (Negative); Urine Clarity Clear (Clear); Urine Color Colorless (Yellow); Urine Hyaline Cast FEW /lpf (0 - 2); Urine Protein, UAD Negative (Negative); Urine Specific Gravity 1.013 (1.001-1.035); Urine Urobilinogen Normal (Negative); Urine WBC 1 /hpf (0 - 3)
[2023-09-27 04:28] LABS: INR 1.8 (0.9-1.15); Partial Thromboplastin Time 40.2 SEC (24.5-34.5); Prothrombin Time 18.2 sec (9.3-11.8)
[2023-09-27 04:32] LABS: Alanine Aminotransferase 66 U/L (7-40); Albumin 3.9 g/dL (3.2-4.8); Alkaline Phosphatase 381 U/L (46-116); Anion Gap 9 (5-15); Aspartate Aminotransferase 86 U/L (13-40); BUN/Creatinine Ratio 22.7 (10.0-20.0); Bilirubin, Direct 0.5 mg/dL (<0.3); Bilirubin, Total 0.6 mg/dL (0.2-1.0); Blood Urea Nitrogen 44 mg/dL (9-23); Calcium 9.9 mg/dL (8.5-10.1); Carbon Dioxide 28 mmol/L (20-30); Chloride 104 mmol/L (98-107); Glucose 115 mg/dL (74-106); Phosphorus 4.7 mg/dL (2.4-5.1); Potassium 3.3 mmol/L (3.5-5.1); Sodium 141 mmol/L (136-145); Total Protein 6.9 g/dL (5.7-8.2)
[2023-09-27 04:50] LABS: Magnesium 2.1 mg/dL (1.6-2.6)
[2023-09-27] MEDS: PIPERACILLIN-TAZOB 3.375GM 100 ML IV SCH ×3 (06:08→22:55)
[2023-09-27] MEDS: THIAMINE 100mg/ml INJ (200mg/2ml VIAL) IV SCH ×3 (06:08→22:15)
[2023-09-27 06:46] LABS: Base Excess 2.3 mmol/L (-2.0-2.0)
[2023-09-27] MEDS: ACCU-CHEK COMFORT CURVE STRIP VI SCH ×8 (08:00→22:16)
[2023-09-27] MEDS: INSULIN DRIP 100 UNIT/100ML 100 ML IV SCH ×2 (08:15→23:00)
[2023-09-27] MEDS: POTASSIUM CHL 20MEQ/100ML 100 ML IV SCH ×4 (09:30→23:30)
[2023-09-27] MEDS ORDERED: ATROPINE SULF 1 MG/10ml SYR ONE (09:31)
[2023-09-27] MEDS ORDERED: IODIXANOL 320MG/ML 100ML BTL IV ONE (10:16)
[2023-09-27] MEDS ORDERED: LIDOCAINE 2%HCL (LOCAL ANESTH.) INJ 20ML MDV ONE (10:16)
[2023-09-27] MEDS: NOREPINEPHRINE 8 MG/250ML KIT 250 ML IV SCH (10:30)
[2023-09-27 10:35] LABS: Basophils # (auto) 0 10 ^3/uL (0-0.2); Basophils % (auto) 0.1 % (0.0-2.0); Eosinophils # (auto) 0 10 ^3/uL (0-0.8); Hemoglobin 7.5 g/dL (13.5-17.5); Lymphocytes # (auto) 0.4 10 ^3/uL (0.4-5.4); Monocytes # (auto) 0.3 10 ^3/uL (0-1.3); Monocytes % (auto) 4.6 % (0.0-12.0); Neutrophils # (auto) 6.8 10 ^3/uL (1.6-8.6); Red Cell Distribution Width 15.4 % (11.8-14.3); White Blood Cell 7.6 10^3/uL (4.4-10.8)
[2023-09-27 10:38] LABS: Hematocrit 23.2 % (41.0-53.0); Lymphocytes % (auto) 5.1 % (10.0-50.0); Mean Corpuscular Hemoglobin 28.5 pg (28.0-32.0); Mean Corpuscular Hgb Conc. 32.1 g/dL (32.0-36.0); Mean Corpuscular Volume 88.6 fL (80.0-100.0); Neutrophils % (auto) 90.2 % (37.0-80.0); Nucleated Red Blood Cells % 0.1 %; Red Blood Cells 2.62 10^6/uL (4.5-5.90)
[2023-09-27] MEDS ORDERED: ANGIOMAX 250 MG VIAL IV ONE (10:43)
[2023-09-27] MEDS ORDERED: SODIUM CHL 0.9% 0 ML ONE (10:44)
[2023-09-27 10:54] LABS: Alanine Aminotransferase 60 U/L (7-40); Alkaline Phosphatase 428 U/L (46-116); Anion Gap 8 (5-15); Aspartate Aminotransferase 84 U/L (13-40); BUN/Creatinine Ratio 21.9 (10.0-20.0); Blood Urea Nitrogen 46 mg/dL (9-23); Calcium 9.7 mg/dL (8.7-10.4); Carbon Dioxide 29 mmol/L (20-30); Chloride 102 mmol/L (98-107); Glucose 123 mg/dL (74-106); Magnesium 2.2 mg/dL (1.6-2.6); Potassium 3.5 mmol/L (3.5-5.1); Sodium 139 mmol/L (136-145); Total Protein 7.2 g/dL (5.7-8.2)
[2023-09-27 10:55] LABS: Bilirubin, Total 0.7 mg/dL (0.2-1.0)
[2023-09-27 11:01] LABS: Phosphorus 4.9 mg/dL (2.4-5.1)
[2023-09-27 11:02] LABS: INR 1.76 (0.9-1.15); Partial Thromboplastin Time 37.3 SEC (24.5-34.5); Prothrombin Time 17.8 sec (9.3-11.8)
[2023-09-27 12:20] LABS: Bilirubin, Direct 0.5 mg/dL (<0.3)
[2023-09-27 12:34] LABS: Base Excess 1.1 mmol/L (-2.0-2.0)
[2023-09-27 13:40] LABS: Urine Bacteria FEW /hpf (None Seen); Urine Blood TRACE /uL (Negative); Urine Clarity Clear (Clear); Urine Color Colorless (Yellow); Urine Protein, UAD Negative (Negative); Urine Urobilinogen Normal (Negative); Urine WBC 1 /hpf (0 - 3)
[2023-09-27] MEDS ORDERED: FLUCONAZOLE 200MG/100ML 100 ML IV ONE (16:30)
[2023-09-27 16:38] LABS: Urine Bacteria FEW /hpf (None Seen); Urine Blood Negative /uL (Negative); Urine Clarity Clear (Clear); Urine Hyaline Cast FEW /lpf (0 - 2); Urine Mucus FEW (None Seen); Urine Protein, UAD Negative (Negative); Urine Specific Gravity 1.012 (1.001-1.035); Urine Urobilinogen Normal (Negative); Urine WBC <1 /hpf (0 - 3); Urine pH 5.5 (5.0-8.0)
[2023-09-27 16:39] LABS: Urine Color STRAW (Yellow)
[2023-09-27 17:05] LABS: Basophils # (auto) 0 10 ^3/uL (0-0.2); Eosinophils # (auto) 0 10 ^3/uL (0-0.8); Hemoglobin 7.5 g/dL (13.5-17.5); Lymphocytes # (auto) 0.4 10 ^3/uL (0.4-5.4); Monocytes # (auto) 0.2 10 ^3/uL (0-1.3); Red Blood Cells 2.61 10^6/uL (4.5-5.90); White Blood Cell 6.9 10^3/uL (4.4-10.8)
[2023-09-27 17:06] LABS: Basophils % (auto) 0.1 % (0.0-2.0); Hematocrit 23.4 % (41.0-53.0); Lymphocytes % (auto) 5.3 % (10.0-50.0); Mean Corpuscular Hemoglobin 28.9 pg (28.0-32.0); Mean Corpuscular Hgb Conc. 32.2 g/dL (32.0-36.0); Mean Corpuscular Volume 89.7 fL (80.0-100.0); Monocytes % (auto) 2.8 % (0.0-12.0); Neutrophils # (auto) 6.4 10 ^3/uL (1.6-8.6); Neutrophils % (auto) 91.8 % (37.0-80.0); Red Cell Distribution Width 15.8 % (11.8-14.3)
[2023-09-27 17:08] LABS: Base Excess 0.6 mmol/L (-2.0-2.0)
[2023-09-27 17:21] LABS: Phosphorus 6.1 mg/dL (2.4-5.1)
[2023-09-27 17:38] LABS: INR 1.73 (0.9-1.15); Prothrombin Time 17.9 sec (9.3-11.8)
[2023-09-27 20:29] LABS: Alanine Aminotransferase 65 U/L (7-40); Albumin 4.1 g/dL (3.2-4.8); Alkaline Phosphatase 427 U/L (46-116); Anion Gap 12 (5-15); Aspartate Aminotransferase 82 U/L (13-40); BUN/Creatinine Ratio 23.8 (10.0-20.0); Blood Urea Nitrogen 54 mg/dL (9-23); Calcium 9.7 mg/dL (8.7-10.4); Carbon Dioxide 25 mmol/L (20-30); Chloride 102 mmol/L (98-107); Glucose 160 mg/dL (74-106); Magnesium 2.3 mg/dL (1.6-2.6); Potassium 3.6 mmol/L (3.5-5.1); Sodium 139 mmol/L (136-145)
[2023-09-27 20:30] LABS: Bilirubin, Total 0.8 mg/dL (0.2-1.0); Total Protein 7.4 g/dL (5.7-8.2)
[2023-09-27 20:46] LABS: Bilirubin, Direct 0.5 mg/dL (<0.3)
[2023-09-27] MEDS ORDERED: ALBUMIN 25% 100 ML IV ONE (21:00)
[2023-09-27] MEDS: FUROSEMIDE 100 MG/10ML VIAL IV ONE ×2 (21:00→22:15)
[2023-09-27] MEDS ORDERED: ACCU-CHEK COMFORT CURVE STRIP VI SCH (21:00)
[2023-09-27] MEDS ORDERED: IOHEXOL 350 MG/ML 100ML IJ ONE (21:49)
[2023-09-27 22:32] LABS: Alanine Aminotransferase 63 U/L (7-40); Albumin 4.2 g/dL (3.2-4.8); Alkaline Phosphatase 412 U/L (46-116); Anion Gap 13 (5-15); Aspartate Aminotransferase 77 U/L (13-40); BUN/Creatinine Ratio 26.5 (10.0-20.0); Blood Urea Nitrogen 61 mg/dL (9-23); Calcium 9.6 mg/dL (8.7-10.4); Carbon Dioxide 26 mmol/L (20-30); Chloride 102 mmol/L (98-107); Glucose 139 mg/dL (74-106); Magnesium 2.3 mg/dL (1.6-2.6); Sodium 141 mmol/L (136-145)
[2023-09-27 22:33] LABS: Bilirubin, Total 0.9 mg/dL (0.2-1.0); Total Protein 7.5 g/dL (5.7-8.2)
[2023-09-27 22:47] LABS: Bilirubin, Direct 0.6 mg/dL (<0.3)
[2023-09-27 22:50] LABS: Potassium 2.9 mmol/L (3.5-5.1)
[2023-09-27 23:20] LABS: Urine Bacteria NONE SEEN /hpf (None Seen); Urine Blood TRACE /uL (Negative); Urine Clarity Clear (Clear); Urine Mucus FEW (None Seen); Urine Protein, UAD Negative (Negative); Urine Specific Gravity 1.015 (1.001-1.035); Urine Urobilinogen Normal (Negative); Urine WBC 1 /hpf (0 - 3); Urine pH 7.5 (5.0-8.0)
[2023-09-27 23:21] LABS: Urine Color STRAW (Yellow)
[2023-09-28] VITALS (27 sets, daily range): BP systolic 107–177; BP diastolic 67–102; PULSE 70–79; RESP 10; TEMP 95.9–98.8; O2SAT 97–100
[2023-09-28] MEDS: ACCU-CHEK COMFORT CURVE STRIP VI SCH ×9 (00:05→16:00)
[2023-09-28 00:32] LABS: Basophils # (auto) 0 10 ^3/uL (0-0.2); Basophils % (auto) 0.1 % (0.0-2.0); Eosinophils # (auto) 0 10 ^3/uL (0-0.8); Lymphocytes # (auto) 0.5 10 ^3/uL (0.4-5.4); Monocytes # (auto) 0.2 10 ^3/uL (0-1.3); White Blood Cell 6.6 10^3/uL (4.4-10.8)
[2023-09-28 00:34] LABS: Hematocrit 23.1 % (41.0-53.0); Hemoglobin 7.7 g/dL (13.5-17.5); Lymphocytes % (auto) 7.9 % (10.0-50.0); Mean Corpuscular Hemoglobin 29.5 pg (28.0-32.0); Mean Corpuscular Hgb Conc. 33.1 g/dL (32.0-36.0); Monocytes % (auto) 3.5 % (0.0-12.0); Neutrophils # (auto) 5.9 10 ^3/uL (1.6-8.6); Neutrophils % (auto) 88.5 % (37.0-80.0); Nucleated Red Blood Cells % 0.1 %; Red Cell Distribution Width 15.7 % (11.8-14.3)
[2023-09-28 00:42] LABS: INR 1.8 (0.9-1.15); Partial Thromboplastin Time 35.8 SEC (24.5-34.5); Prothrombin Time 18.2 sec (9.3-11.8)
[2023-09-28 00:46] LABS: Base Excess 3.4 mmol/L (-2.0-2.0)
[2023-09-28] MEDS: POTASSIUM CHL 20MEQ/100ML 100 ML IV SCH ×8 (00:55→15:26)
[2023-09-28] MEDS: INSULIN DRIP 100 UNIT/100ML 100 ML IV SCH (01:46)
[2023-09-28] MEDS: FUROSEMIDE 40 MG/4 ML VIAL IV SCH ×4 (01:49→14:48)
[2023-09-28] MEDS: acetaZOLAMIDE SODIUM 500 MG VL IV SCH ×4 (01:50→14:16)
[2023-09-28] MEDS: methylPREDNISolone SOD SUCC 500 MG in SODIUM CHL 0.9% 100 ML IV SCH ×2 (02:31→11:08)
[2023-09-28] MEDS: DOBUTamine 1000MCG/ML 250 ML IV SCH (03:17)
[2023-09-28] MEDS: VASOPRESSIN 20 UNITS in SODIUM CHL 0.9% 99 ML IV SCH ×2 (03:24→11:12)
[2023-09-28 04:17] LABS: Basophils # (auto) 0 10 ^3/uL (0-0.2); Eosinophils # (auto) 0 10 ^3/uL (0-0.8); Lymphocytes # (auto) 0.5 10 ^3/uL (0.4-5.4); Monocytes # (auto) 0.3 10 ^3/uL (0-1.3)
[2023-09-28 04:20] LABS: Hematocrit 21.4 % (41.0-53.0); Lymphocytes % (auto) 7.7 % (10.0-50.0); Mean Corpuscular Hemoglobin 29.2 pg (28.0-32.0); Mean Corpuscular Hgb Conc. 32.8 g/dL (32.0-36.0); Monocytes % (auto) 5.1 % (0.0-12.0); Neutrophils # (auto) 5.3 10 ^3/uL (1.6-8.6); Neutrophils % (auto) 87.2 % (37.0-80.0); Nucleated Red Blood Cells % 0.1 %; Red Cell Distribution Width 15.6 % (11.8-14.3); White Blood Cell 6.1 10^3/uL (4.4-10.8)
[2023-09-28 04:24] LABS: INR 2.04 (0.9-1.15); Partial Thromboplastin Time 35.1 SEC (24.5-34.5); Prothrombin Time 20.4 sec (9.3-11.8)
[2023-09-28 04:31] LABS: Alanine Aminotransferase 61 U/L (7-40); Albumin 4.1 g/dL (3.2-4.8); Alkaline Phosphatase 355 U/L (46-116); Anion Gap 12 (5-15); Aspartate Aminotransferase 66 U/L (13-40); BUN/Creatinine Ratio 27.2 (10.0-20.0); Blood Urea Nitrogen 62 mg/dL (9-23); Carbon Dioxide 25 mmol/L (20-30); Chloride 106 mmol/L (98-107); Glucose 129 mg/dL (74-106); Potassium 3.2 mmol/L (3.5-5.1); Sodium 143 mmol/L (136-145)
[2023-09-28 04:32] LABS: Bilirubin, Direct 0.6 mg/dL (<0.3); Bilirubin, Total 0.8 mg/dL (0.2-1.0); Total Protein 7.1 g/dL (5.7-8.2)
[2023-09-28 04:33] LABS: Phosphorus 4.8 mg/dL (2.4-5.1)
[2023-09-28] MEDS: phytonadione 10 MG in SODIUM CHL 0.9% 50 ML IV ONE ×2 (04:45→06:43)
[2023-09-28 04:49] LABS: Magnesium 2.4 mg/dL (1.6-2.6)
[2023-09-28 04:49] LABS: Urine Bacteria FEW /hpf (None Seen); Urine Blood 3+ /uL (Negative); Urine Clarity Clear (Clear); Urine Color Yellow (Yellow); Urine Hyaline Cast MOD /lpf (0 - 2); Urine Protein, UAD TRACE (Negative); Urine Specific Gravity 1.017 (1.001-1.035); Urine Urobilinogen Normal (Negative); Urine WBC 2 /hpf (0 - 3)
[2023-09-28] MEDS: THIAMINE 100mg/ml INJ (200mg/2ml VIAL) IV SCH ×2 (05:52→14:33)
[2023-09-28] MEDS: PIPERACILLIN-TAZOB 3.375GM 100 ML IV SCH ×2 (05:53→14:12)
[2023-09-28] MEDS ORDERED: DEXTROSE (50%) 50ML SYRG IV ONE (06:15)
[2023-09-28] MEDS ORDERED: phytonadione 10 MG in SODIUM CHL 0.9% 50 ML IV ONE (06:30)
[2023-09-28] MEDS ORDERED: phytonadione 1 ML ONE (06:39)
[2023-09-28] MEDS ORDERED: VANCOMYCIN 750mg/250ml 250 ML IV SCH (07:00)
[2023-09-28 07:15] LABS: Base Excess 1.1 mmol/L (-2.0-2.0)
[2023-09-28 08:06] LABS: Creatine Kinase CKMB 2.5 ng/mL (0.0-10.4)
[2023-09-28 08:06] LABS: Creatine Kinase CKMB 1.6 ng/mL (0.0-10.4)
[2023-09-28 08:06] LABS: Creatine Kinase CKMB 1.7 ng/mL (0.0-10.4)
[2023-09-28 08:06] LABS: Creatine Kinase CKMB 1.2 ng/mL (0.0-10.4)
[2023-09-28 08:06] LABS: Creatine Kinase CKMB 2.1 ng/mL (0.0-10.4)
[2023-09-28] MEDS: NOREPINEPHRINE 8 MG/250ML KIT 250 ML IV SCH (10:30)
[2023-09-28 11:35] LABS: Urine Bacteria NONE SEEN /hpf (None Seen); Urine Blood TRACE /uL (Negative); Urine Clarity Clear (Clear); Urine Color Yellow (Yellow); Urine Protein, UAD Negative (Negative); Urine Specific Gravity 1.021 (1.001-1.035); Urine Urobilinogen Normal (Negative); Urine WBC 1 /hpf (0 - 3); Urine pH 5.5 (5.0-8.0)
[2023-09-28 11:38] LABS: Basophils # (auto) 0 10 ^3/uL (0-0.2); Eosinophils # (auto) 0 10 ^3/uL (0-0.8); Lymphocytes # (auto) 0.5 10 ^3/uL (0.4-5.4); Lymphocytes % (auto) 7.4 % (10.0-50.0); Mean Corpuscular Volume 88.9 fL (80.0-100.0); Monocytes # (auto) 0.4 10 ^3/uL (0-1.3); White Blood Cell 6.9 10^3/uL (4.4-10.8)
[2023-09-28 11:40] LABS: Hematocrit 25.2 % (41.0-53.0); Hemoglobin 8.2 g/dL (13.5-17.5); Mean Corpuscular Hemoglobin 29.1 pg (28.0-32.0); Mean Corpuscular Hgb Conc. 32.7 g/dL (32.0-36.0); Monocytes % (auto) 5.4 % (0.0-12.0); Neutrophils % (auto) 87.2 % (37.0-80.0); Nucleated Red Blood Cells % 0.1 %; Red Blood Cells 2.84 10^6/uL (4.5-5.90); Red Cell Distribution Width 15.5 % (11.8-14.3)
[2023-09-28 11:56] LABS: INR 1.48 (0.9-1.15); Partial Thromboplastin Time 32.4 SEC (24.5-34.5); Prothrombin Time 15.1 sec (9.3-11.8)
[2023-09-28 11:59] LABS: Phosphorus 4.5 mg/dL (2.4-5.1)
[2023-09-28 13:36] LABS: Alanine Aminotransferase 67 U/L (7-40); Albumin 4.4 g/dL (3.2-4.8); Alkaline Phosphatase 362 U/L (46-116); Anion Gap 12 (5-15); Aspartate Aminotransferase 66 U/L (13-40); BUN/Creatinine Ratio 30.4 (10.0-20.0); Bilirubin, Direct 0.6 mg/dL (<0.3); Bilirubin, Total 0.9 mg/dL (0.2-1.0); Calcium 9.6 mg/dL (8.5-10.1); Carbon Dioxide 26 mmol/L (20-30); Chloride 104 mmol/L (98-107); Glucose 119 mg/dL (74-106); Potassium 3.3 mmol/L (3.5-5.1); Sodium 142 mmol/L (136-145); Total Protein 7.7 g/dL (5.7-8.2)
[2023-09-28 13:38] LABS: Blood Urea Nitrogen 75 mg/dL (9-23)
[2023-09-28 13:44] LABS: Magnesium 2.6 mg/dL (1.6-2.6)
[2023-09-29 09:06] LABS: Creatine Kinase CKMB <1.0 ng/mL (0.0-10.4)
[2023-09-29 10:06] LABS: Creatine Kinase CKMB <1.0 ng/mL (0.0-10.4)
[2023-09-30 01:06] LABS: Creatine Kinase CKMB <1.0 ng/mL (0.0-10.4)
== END 2023-09-28 15:49 | DRG 81 ==
LOC: ICU WEST 09:40
PROVIDERS: ADMIT Emergency Medicine; ATTEND Emergency Medicine
PROC: 03HY32Z Insertion of Monitoring Device into Upper Artery, Percutaneous Approach (ICD-10-PCS; 2023-09-25)
PROC: 30233N1 Transfusion of Nonautologous Red Blood Cells into Peripheral Vein, Percutaneous Approach (ICD-10-PCS; 2023-09-25)
PROC: 5A1935Z Respiratory Ventilation, Less than 24 Consecutive Hours (ICD-10-PCS; 2023-09-26)
PROC: 0B958ZZ Drainage of Right Middle Lobe Bronchus, Via Natural or Artificial Opening Endoscopic (ICD-10-PCS; 2023-09-26)
PROC: 0BH17EZ Insertion of Endotracheal Airway into Trachea, Via Natural or Artificial Opening (ICD-10-PCS; 2023-09-26)
PROC: 4A023N8 Measurement of Cardiac Sampling and Pressure, Bilateral, Percutaneous Approach (ICD-10-PCS; principal; 2023-09-27)
PROC: B211YZZ Fluoroscopy of Multiple Coronary Arteries using Other Contrast (ICD-10-PCS; 2023-09-27)
CPT/HCPCS: 36415; 36600; 71045; 76700; 80053; 80202; 81001; 82150; 82248; 82330; 82550; 82553; 82805; 82962; 83605; 83615; 83690; 83735; 83930; 84100; 84484; 85007; 85025; 85027; 85610; 85730; 86850; 86900; 86901; 86920; 87040; 87070; 87077; 87086; 87205; 93005; 93306; 94003; 99152; G0378; J0171; J1450; J1815; J2250; J2543; J3430; J3480; J7060; P9047; Q9967